=== PATIENT | male | born 1940 | race Caucasian/White ===

== ENCOUNTER 2019-08-11 12:57 | Outpatient (RCR) | payer MEDICARE, SELFPAY ==
[2019-08-11 13:27] LABS: INR 2.1
== END 2019-11-09 23:59 | disposition home or self-care (01) ==
LOC: ANHLAB 12:57
PROVIDERS: PCP Internal Medicine
DX: I48.0 Paroxysmal atrial fibrillation (principal)
CPT/HCPCS: 36415; 85610

== ENCOUNTER 2020-02-08 10:10 | Outpatient (RCR) | payer MEDICARE, SELFPAY ==
[2020-01-23 14:32] LABS: INR 3.4; Prothrombin Time 33.8 Seconds (11.1-14.7)
[2020-02-08 10:48] LABS: INR 2.1; Prothrombin Time 23.5 Seconds (11.1-14.7)
== END 2020-04-22 23:59 | disposition home or self-care (01) ==
LOC: ANHLAB 10:10
PROVIDERS: PCP Internal Medicine
DX: I48.0 Paroxysmal atrial fibrillation (principal)
CPT/HCPCS: 36415; 85610

== ENCOUNTER 2023-12-27 08:49 | Inpatient (IN) | payer MEDICARE, SELFPAY ==
[2023-12-27] VITALS (30 sets, daily range): BP systolic 89–121; BP diastolic 43–65; PULSE 71–78; RESP 13–22; TEMP 36.3–36.6; O2SAT 90–100; BMI 28.7
--- NOTE | ~2023-12-27 | CT_ITS ---
EXAMINATION: CT abdomen pelvis wo con DATE: 12/30/2023 14:57 INDICATION: Cystic hepatic mass TECHNIQUE: Computed tomography (CT) of the abdomen and pelvis was performed without intravenous contr ast. Automated exposure control and iterative reconstruction technique were employed. The dose-length product was 1239.00 mGy-cm. COMPARISON: None FINDINGS: Small left and tiny right pleural effusions. Patchy groundglass opacities and irregular septal line t hickening in the bilateral lower lungs. Cardiomegaly. Atherosclerotic coronary artery calcifications. Dual-lead cardiac pacemaker with lead tips at the right atrial appendage and along the lateral wall of the right ventricle near the apex. Aortic valve calcification. Median sternotomy and mitral valve repair. Gynecomastia, left greater than right. Shrunken nodular cirrhotic liver. There is a 2.2 cm cystic lesion in segment IVb of the liver without evident solid soft tissue component within this noncontrast study. Gallbladder, spleen, pancreas, bi lateral adrenal glands and kidneys are normal. Large amount of ascites scattered throughout the abdom en and pelvis. There is extension of small amount of ascites into a couple small umbilical and paraum bilical ventral hernias. Status post prostatectomy with Guillen catheter within the decompressed bladde r. There are few scattered colonic diverticula without adjacent from trace stranding to suggest diver ticulitis. No bowel obstruction. There is calcified atherosclerosis of the aorta and many of the othe r arteries. Extensive body wall edema. Severe disc height loss at L5-S1 with mild to moderate disc he ight loss at L4-L5. IMPRESSION: 1. 2.2 cm cystic lesion in segment IVb of the liver which appears simple without evident solid soft t issue component on noncontrast imaging. 2. Cirrhosis with large amount of ascites scattered throughout the abdomen and pelvis and extending i nto small umbilical and paraumbilical ventral hernias. 3. Opacities in the bilateral lower lungs which are concerning for pneumonia with differential includ ing pulmonary edema or chronic interstitial lung disease. 4. Small left and very small right pleural effusion. 5. Cardiomegaly. Reviewed, dictated and finalized at location A. IMPRESSION: 1. 2.2 cm cystic lesion in segment IVb of the liver which appears simple withou t evident solid soft tissue component on noncontrast imaging. 2. Cirrhosis with large amount of ascites scattered throughout the abdomen and pelvis and extending into small umbilical and paraumbilical ventral hernias. 3. Opacities in the bilateral lower lungs which are concerning for pneumonia wi th differential including pulmonary edema or chronic interstitial lung disease. 4. Small left and very small right pleural effusion. 5. Cardiomegaly.
--- NOTE | ~2023-12-27 | XR_ITS ---
EXAMINATION: XR chest 1V portable DATE: 12/30/2023 05:33 INDICATION: Pneumonia. TECHNIQUE: A single frontal view of the chest was obtained. COMPARISON: Chest single view 12/29/2023 FINDINGS: There are airspace opacities in all lung zones bilaterally, worst in right upper lobe and l eft mid and lower lung zones. No pleural effusion or pneumothorax. Cardiomegaly is noted. There is a left chest pacer with leads in right atrium, right ventricle, and coronary sinus. There are changes o f heart valve replacement. A right internal jugular central venous catheter is seen with tip at the s uperior cavoatrial junction. IMPRESSION: 1. Stable diffuse lung disease, consistent with pneumonia versus acute respiratory distress syndrome (ARDS). 2. Cardiomegaly. Reviewed, dictated and finalized at location A. IMPRESSION: 1. Stable diffuse lung disease, consistent with pneumonia versus acute respirat ory distress syndrome (ARDS). 2. Cardiomegaly.
--- NOTE | ~2023-12-27 | XR_ITS ---
XR chest 2V 12/27/2023 09:51 Indication: Shortness of breath Procedure: AP and lateral views of the chest Comparison: 03/25/2019 Findings: Status post median sternotomy for CABG. Moderate cardiomegaly. Central venous catheter tips in the SVC. Pacemaker leads are stable. 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 Extensive patchy bilatera l airspace disease, compatible with pneumonia. Impression: 1: Interval development of extensive patchy bilateral airspace disease, compatible with pneumonia. Reviewed, dictated and finalized at location A. Impression: 1: Interval development of extensive patchy bilateral airspace disease, compati ble with pneumonia.
--- NOTE | ~2023-12-27 | XR_ITS ---
EXAMINATION: XR chest 1V portable INDICATION: Pneumonia TECHNIQUE: Portable AP chest at 0517 hours COMPARISON: 12/30/2023 FINDINGS: Diffuse airspace opacities persist in all lung zones with slight improvement. There is elev ation of the right hemidiaphragm. A large bore right internal jugular catheter ends with its tip at t he superior cavoatrial junction. A triple lead cardiac pacemaker of the cardiomegaly is noted. chest wall ends with leads in expected locations. No pleural effusion or pneumothorax. IMPRESSION: 1. Diffuse lung disease with interval improvement, consistent with pneumonia and/or pulmonary edema a nd/or acute respiratory distress syndrome (ARDS). 2. Cardiomegaly. Reviewed, dictated and finalized at location F. IMPRESSION: 1. Diffuse lung disease with interval improvement, consistent with pneumonia an d/or pulmonary edema and/or acute respiratory distress syndrome (ARDS). 2. Cardiomegaly.
--- NOTE | ~2023-12-27 | XR_ITS ---
EXAMINATION: XR chest 1V portable DATE: 12/29/2023 05:33 INDICATION: Pneumonia. TECHNIQUE: A single frontal view of the chest was obtained. COMPARISON: Chest single view 12/28/2023 FINDINGS: There are airspace and interstitial opacities in all lung zones bilaterally, worst in the r ight upper lobe and left mid and lower lung zones. No pleural effusion or pneumothorax. Cardiomegaly is noted. There are changes of heart valve replacement. There is a left chest pacer with leads in rig ht atrium, right ventricle, and coronary sinus. A right internal jugular central venous catheter is s een with tip at the superior cavoatrial junction. IMPRESSION: 1. Stable diffuse lung disease, consistent with pneumonia versus acute respiratory distress syndrome (ARDS). 2. Cardiomegaly. Reviewed, dictated and finalized at location E. IMPRESSION: 1. Stable diffuse lung disease, consistent with pneumonia versus acute respirat ory distress syndrome (ARDS). 2. Cardiomegaly.
--- NOTE | ~2023-12-27 | XR_ITS ---
EXAM: XR abdomen obstructive series DATE: 12/27/2023 14:30 HISTORY: Distended abdomen . COMPARISON: None available. FINDINGS: Patchy airspace disease bilaterally, greater in the left lung base. Cardiac valve replacem ent. Pacing wires. Normal bowel gas pattern. No organomegaly. No abnormal abdominal calcification. At herosclerotic vascular calcifications. Lumbar degenerative disc disease. Bilateral hip osteoarthritis . IMPRESSION: No radiographic evidence of obstruction or ileus. Reviewed, dictated and finalized at location K.
--- NOTE | ~2023-12-27 | XR_ITS ---
EXAMINATION: XR chest 1V portable DATE: 12/28/2023 06:29 INDICATION: Pneumonia. TECHNIQUE: A single frontal view of the chest was obtained. COMPARISON: Chest 2 views 12/27/2023 FINDINGS: There are airspace and interstitial opacities in all lung zones bilaterally, worst in the r ight upper lobe and left mid and lower lung zones. No pleural effusion or pneumothorax. Cardiomegaly is noted. There is a left chest pacer leads in right atrium, right ventricle, and coronary sinus. A r ight internal jugular central venous catheter is seen with tip in the superior vena cava. IMPRESSION: 1. Stable diffuse lung disease, consistent with pulmonary edema versus pneumonia. 2. Cardiomegaly. Reviewed, dictated and finalized at location E. IMPRESSION: 1. Stable diffuse lung disease, consistent with pulmonary edema versus pneumoni a. 2. Cardiomegaly.
--- NOTE | ~2023-12-27 | XR_ITS ---
EXAMINATION: XR chest 1V portable INDICATION: Pneumonia TECHNIQUE: Portable AP chest at 0516 hours COMPARISON: 12/31/2023 FINDINGS: Diffuse airspace opacities persist throughout all lung zones with slight worsening in the r ight upper lung zone. A large bore right internal jugular catheter ends with this tip in the distal s uperior vena cava. A triple lead cardiac pacemaker of the left chest wall ends with leads in expected locations. Cardiomegaly is noted. No pleural effusion or pneumothorax. Changes of prior cardiac surg tez are noted. IMPRESSION: 1. Diffuse lung disease with interval worsening in the right upper lung zone, consistent with pneumon ia and/or pulmonary edema and/or acute respiratory distress syndrome (ARDS). 2. Cardiomegaly. Reviewed, dictated and finalized at location A. IMPRESSION: 1. Diffuse lung disease with interval worsening in the right upper lung zone, c onsistent with pneumonia and/or pulmonary edema and/or acute respiratory distre ss syndrome (ARDS). 2. Cardiomegaly.
--- NOTE | ~2023-12-27 | US_ITS ---
EXAMINATION: US venous doppler [facility] DATE: 12/27/2023 18:56 INDICATION: Bilateral lower extremity edema. TECHNIQUE: Grayscale images without and with compression and Doppler images of the bilateral lower ex tremity veins were obtained. COMPARISON: None FINDINGS: The right common femoral vein, profunda (deep) femoral vein, femoral vein, popliteal vein, peroneal v ein, posterior tibial veins, gastrocnemius vein, and greater saphenous vein are patent. The calf vein s could not be compressed due to edema. The left common femoral vein, profunda (deep) femoral vein, femoral vein, popliteal vein, peroneal v ein, posterior tibial veins, gastrocnemius vein, and greater saphenous vein are patent. The calf vein s could not be compressed due to edema. IMPRESSION: Patent bilateral lower extremity veins. No evidence of deep venous thrombosis. Somewhat limited evalu ation of the bilateral calf veins. Reviewed, dictated and finalized at location K. IMPRESSION: Patent bilateral lower extremity veins. No evidence of deep venous thrombosis. Somewhat limited evaluation of the bilateral calf veins.
--- NOTE | ~2023-12-27 | US_ITS ---
EXAMINATION: US abdomen limited DATE: 12/28/2023 08:19 INDICATION: Hyperbilirubinemia. TECHNIQUE: Multiple grayscale and Doppler ultrasound images of the abdomen were obtained. COMPARISON: None FINDINGS: The visualized portions of the head, body, and tail of the pancreas are normal. The liver d emonstrates heterogeneous echogenicity and surface nodularity, consistent with cirrhosis. There is a 2.0 cm cystic mass with component of mixed echogenicity in the liver adjacent to the gallbladder. The re is pulsatile antegrade flow in main portal vein. The gallbladder is normal in size and contains sl udge. No visible gallstones. Gallbladder wall thickening is noted, likely secondary to chronic liver disease. There is no sonographic Dalton sign. The common duct is normal and measures 4 mm. There is a small volume of perihepatic ascites. IMPRESSION: 1. Cirrhosis of the liver. 2. 2.2 cm cystic mass in the liver abutting the gallbladder. The differential diagnosis includes hemo rrhagic cyst, abscess, and malignancy. Abdomen CT without and with contrast is recommended. 3. Small volume of perihepatic ascites. Reviewed, dictated and finalized at location E. IMPRESSION: 1. Cirrhosis of the liver. 2. 2.2 cm cystic mass in the liver abutting the gallbladder. The differential d iagnosis includes hemorrhagic cyst, abscess, and malignancy. Abdomen CT without and with contrast is recommended. 3. Small volume of perihepatic ascites.
--- NOTE | 2023-12-27 08:56 | ECG_ITS ---
Measurements Intervals [place] Rate: 79 P: GA: 0 QRS: -56 QRSD: 162 T: 34 QT: 468 QTc: 539 Interpretive Statements ELECTRONIC VENTRICULAR PACEMAKER BASELINE ARTIFACT- II, III, AVR, AVL, AVF, V1, V4-V6 NO FURTHER INTERPRETATION IS POSSIBLE ATYPICAL ECG COMPARED TO ECG 03/25/2019 11:30:57 NO SIGNIFICANT CHANGES Electronically Signed On 12-27-2023 12:09:32 CDT by Douglas Tabares D.O.
[2023-12-27 09:09] LABS: Basophils Absolute Auto 0.1 K/mm3 (0.0-0.1); Basophils Percent Auto 0.5 % (0.2-1.2); Eosinophils Absolute Auto 0.3 K/mm3 (0-0.3); Eosinophils Percent Auto 2.5 % (0-4.4); Hematocrit 29.2 % (42.0-52.0); Hemoglobin 8.7 g/dL (14.0-18.0); Immature Granulocyte Absolute 0.12 K/mm3 (0.00-0.031); Immature Granulocyte Percent A 1.2 % (0-0.5); Lymphocytes Absolute Auto 0.63 K/mm3 (0.9-3.2); Lymphocytes Percent Auto 6.4 % (18.3-44.2); Mean Corpuscular HGB Conc 29.8 g/dl (32-36); Mean Corpuscular Volume 93.9 fl (80-100); Mean Platelet Volume 10.3 fl (7.4-10.4); Monocytes Absolute Auto 0.8 K/mm3 (0.1-0.6); Monocytes Percent Auto 8.1 % (2.6-8.5); Neutrophils Percent Auto 81.3 % (45.5-73.1); Platelet Count Result 192 k/mm3 (150-375); Red Blood Count 3.11 M/mm3 (4.6-6.20); Red Cell Distribution Width 17.8 % (11.5-14.5); White Blood Count 9.8 K/mm3 (4.5-10.0)
--- NOTE | 2023-12-27 09:09 | ED.GENADULT ---
HPI - General Adult General Chief complaint: Unspecified Stated complaint: low BP, O2 Time Seen by Provider: 12/27/23 08:53 Source: patient and EMS Mode of arrival: EMS Limitations: no limitations History of Present Illness HPI narrative: 83-year-old male presenting for reported hypoxia, hypotension from his rehab facility. Patient was started on dialysis yesterday and reportedly was found hypoxic and hypotensive this morning. He typically is on 2-3 L oxygen but they had to increase it to 5 L because his oxygen was in the 80s. Patient says he feels slightly more short of breath than normal but really feels quite good. He has no other complaints. Related Data Home Medications Medication Instructions Recorded Confirmed amiodarone 200 mg PO BID A-fib 12/24/23 12/27/23 furosemide 80 mg PO DAILY CHF 12/24/23 12/27/23 metolazone 5 mg PO QAM Swelling 12/24/23 12/27/23 pitavastatin calcium 2 mg PO HS 12/24/23 12/27/23 senna-docusate sodium 2 tablet PO QAM PRN Constipation 12/24/23 12/27/23 tamsulosin 0.4 mg PO HS Urinary retention 12/24/23 12/27/23 warfarin 3 mg PO 1700 A-fib 12/24/23 12/27/23 Allergies Allergy/AdvReac Type Severity Reaction Status Date / Time Sulfa (Sulfonamide Allergy Unknown Rash Verified 12/27/23 09:08 Antibiotics) Review of Systems Review of Systems: All systems reviewed & are unremarkable except as noted in HPI and below PMFSH Family History Family History Other Hypertension Social History Social History Smoking packs per day: 1 Smoking cigarettes per day: 20.0 Years smoked: 10 Smoking pack-years: 10.00 Smoking status: Former smoker Second hand tobacco smoke exposure: No Smoking end date: 10/05/79 Alcohol intake: former Substance use: never Do You Feel Safe in your Home?: Yes Lack of Transportation: No Lack of Food: Never True Current Housing: I Have Housing Concerned About Future Housing: No Difficulty Paying Gas/Electric Bills: No Difficulty Paying for Meds: No Currently Unemployed: No Education: Trade/Vocational Certificate Difficulty w/ Childcare or Family Care: No Spiritual care concerns: No Exam Narrative: Constitutional: Generally well appearing, no acute distress Head: Atraumatic, no deformities. Eyes: Pupils equal, round, and reactive to light. Neck: Supple, no tracheal deviation, no JVD. ENMT: Mucous membranes moist Cardiovascular: S1, S2 auscultated. No murmurs, rubs, or gallops. No S3/S4. Normal Distal pulses. No peripheral edema. Right upper chest wall PermCath Respiratory: Lung sounds equal. No wheezes, rales, or rhonchi. Gastrointestinal: Abdomen was soft and non-tender. Non-distended. No rebound or guarding. Genitourinary: Deferred Musculoskeletal: Normal muscle tone and bulk. No obvious deformities or tenderness over extremities. Skin: No rashes. Neurological: Strength 5/5 in extremities. Cranial nerves I-XII grossly intact. Distal sensation intact. Mental Status: Awake, alert and oriented x3. Follows commands Course Vital Signs Vital signs: Vital Signs Temperature 36.4 C L 12/27/23 08:44 Pulse Rate 77 12/27/23 08:44 Respiratory Rate 21 H 12/27/23 08:44 Blood Pressure 104/45 L 12/27/23 08:44 Pulse Oximetry 91 12/27/23 08:44 Oxygen Delivery Nasal Cannula 12/27/23 08:44 Oxygen Flow Rate 4 12/27/23 08:44 Temperature 36.4 C L 12/27/23 08:44 Pulse Rate 72 12/27/23 09:30 Respiratory Rate 17 12/27/23 09:30 Blood Pressure 89/43 L 12/27/23 09:30 Pulse Oximetry 95 12/27/23 09:30 Oxygen Delivery Nasal Cannula 12/27/23 08:44 Oxygen Flow Rate 4 12/27/23 08:53 Medical Decision Making MDM Narrative Medical decision making narrative: 83-year-old male presenting from rehab facility for hypotension hypoxia. Reportedly Had dialysis yesterday. On exam patient
[2023-12-27 09:22] LABS: Alanine Aminotransferase 20 U/L (6-50); Albumin Level 3.1 g/dL (3.5-5.1); Alkaline Phosphatase 258 U/L (38-126); Anion Gap 5 mmol/L (8-16); Aspartate Amino Transferase 59 U/L (17-59); Bilirubin,Total 2.4 mg/dL (0.2-1.3); Blood Urea Nitrogen 40 mg/dL (9-20); Calcium 8.7 mg/dL (8.4-10.2); Carbon Dioxide 30 mmol/L (22-30); Chloride 99 mmol/L (98-107); Estimated CRCL calculation 23 ml/min; Estimated Glomerular Filt Rate 27; Glucose 102 mg/dL (65-110); Potassium 4.1 mmol/L (3.4-5.0); Sodium 134 mmol/L (137-145)
[2023-12-27 09:35] LABS: Ovalocytes 1+; Platelet Estimate Adequate (Adequate); Poikilocytosis 1+
[2023-12-27 09:36] LABS: Schistocytes Rare
[2023-12-27 09:56] LABS: INR 1.9; Prothrombin Time 22.6 Seconds (11.1-14.7)
[2023-12-27 09:57] LABS: Partial Thromboplastin Time 44.6 Seconds (22.3-36.8)
[2023-12-27] MEDS: SODIUM CHLORIDE 0.9% IV 500 ML 999 ML IV CONT (09:58)
[2023-12-27 10:15] LABS: CRP 7.5 mg/dL (<1.0)
[2023-12-27 10:46] LABS: Lactic Acid Reflex 1.4 mmol/L (0.7-2.0)
[2023-12-27] MEDS: CEFEPIME 2 GM/NS 50 ML 2 GM/50 ML BAG IVPB (10:51)
[2023-12-27] MEDS: VANCOMYCIN 1,250 MG/NS 250 ML 1,250 MG/250 ML BAG 166.67 MG IVPB (11:03)
[2023-12-27 11:44] LABS: Influenza A QL RT-PCR Negative (Negative); Influenza B QL RT-PCR Negative (Negative); RSV RNA, RT-PCR Negative (Negative); SARS-CoV-2 RNA PCR Negative (Negative)
[2023-12-27 12:19] LABS: MRSA (PCR) NOT DETECTED (NOT DETECTE)
--- NOTE | 2023-12-27 12:32 | ADMGEN ---
This patient, Haresh Perez, was admitted to Virtual Bed ICU-1 at 1224. Patient/family oriented to hospital policies and general routines including ID bracelet, bed and alarms, visiting hours, pain management, procedures, bathroom and other care routines, personal items, smoking policy, room service/diet, and visiting hours. Information on how to activate the Rapid Response Team has been discussed. Patient/Family are encouraged to report perceived risks to care and to ask questions if they do not understand what they are told or what they should do.
[2023-12-27] MEDS: VANCOMYCIN 1,000 MG/NS 250 ML 1,000 MG/250 ML BAG 250 MG IVPB (13:05)
--- NOTE | 2023-12-27 13:45 | ADMGEN ---
This patient, Haresh Perez, was admitted to Intensive Care Unit-5. Patient/family oriented to hospital policies and general routines including ID bracelet, bed and alarms, visiting hours, pain management, procedures, bathroom and other care routines, personal items, smoking policy, room service/diet, and visiting hours. Information on how to activate the Rapid Response Team has been discussed. Patient/Family are encouraged to report perceived risks to care and to ask questions if they do not understand what they are told or what they should do.
--- NOTE | 2023-12-27 14:00 | WPDCNINT ---
Assessment and Plan Assessment and plan (1) Pneumonia: Qualifiers: Pneumonia type: due to unspecified organism Laterality: bilateral Lung location: unspecified part of lung Qualified Code(s): J18.9 - Pneumonia, unspecified organism Code(s): J18.9 - Pneumonia, unspecified organism Status: Acute Assessment and Plan: 12/27/2023: Patient presented from the rehab facility with shortness of breath and hypoxia, normally on 3 L oxygen which had to be bumped to 5 L with adequate O2 sats. The ER he was saturating much better so a oxygen was dialed down to 3 L nasal cannula. -12/26: chest x-ray admission showed interval development of extensive patchy bilateral airspace disease, compatible with pneumonia, pacemaker leads are stable, and a prosthetic heart valve, status post median sternotomy for CABG, moderate cardiomegaly, central venous catheter tip in SVC -start bronchodilators -continue vancomycin and cefepime (12/26) -12/26 blood cultures have been obtained and pending -continue supplemental oxygen to maintain O2 sats > 92% (2) Sepsis: Qualifiers: Sepsis type: sepsis due to unspecified organism Sepsis acute organ dysfunction status: without acute organ dysfunction Qualified Code(s): A41.9 - Sepsis, unspecified organism Code(s): A41.9 - Sepsis, unspecified organism Status: Acute Assessment and Plan: Patient presented with hypoxia with O2 sats in the 80s, tachypnea, cough, hypotension -lactic acid is within normal limits -continue antibiotics as above -patient received 500 mL IV fluid bolus in the ER -given patient has a history of end-stage renal disease, will infuse albumin for volume expansion -patient's systolic blood pressures normally run in the 100s -add midodrine, since patient has cardiorenal syndrome (3) Paroxysmal A-fib: Code(s): I48.0 - Paroxysmal atrial fibrillation Status: Acute Assessment and Plan: History of paroxysmal AFib -continue p.o. amiodarone and Coumadin for anticoagulation (4) SSS (sick sinus syndrome): Code(s): I49.5 - Sick sinus syndrome Status: Acute Assessment and Plan: Patient with history of sick sinus syndrome with pacemaker in place (5) Edema: Code(s): R60.9 - Edema, unspecified Status: Chronic Assessment and Plan: Bilateral lower extremity edema, multifactorial -could be related due to cardiomyopathy, renal failure, hepatic dysfunction -elevated bilirubin, will obtain right upper quadrant ultrasound -abdominal is also distended, will obtain obstructive series -continue albumin for now -patient is on dialysis for fluid removal (6) Renal failure: Code(s): N19 - Unspecified kidney failure Status: Acute Assessment and Plan: Patient with acute on chronic kidney disease -recently started on dialysis on 12/15/2023 at [facility] where he was diagnosed with cardiorenal syndrome -patient has a tunnel dialysis catheter which was placed on 12/15/2023 -nephrology has been consulted -dialysis per Nephrology -will hold Lovenox and metolazone due to hypotension (7) Debilitated: Code(s): R53.81 - Other malaise Status: Acute Assessment and Plan: Patient at rehab facility for debilitation, he states he has not been able to get up and walk. -once he is stable will have PT/OT evaluate the patient Plan DVT prophylaxis: Coumadin Stress ulcer prophylaxis: Not indicated Nutrition: Renal diet Code Status: Full code Critical Care Time Spent: 49 minutes Discuss with Nephrology, agrees with the plan as above Due to a high probability of clinically significant, life threatening deterioration, the patient required my highest level of preparedness to intervene emergently and I personally spent this critical care time directly and personally managing the patient. This critical care time included obtaining a history; examining the patient; pulse ox
--- NOTE | 2023-12-27 14:23 | P.CONNP_ITS ---
Assessment and Plan Assessment and plan (1) Acute kidney injury superimposed on CKD: Code(s): N17.9 - Acute kidney failure, unspecified; N18.9 - Chronic kidney disease, unspecified Status: Acute Assessment and Plan: * dialysis dependent at this time * baseline CKD likely due to CHF, vascular disease, hypertension, and age- related change * outpatient and inpatient labs noted: * 1.5 - 1.7mg/dl in 2022 * 2.1 ? 2.4mg/dl since Oct 2023 * on admission to [facility] (12/09), creatinine 2.8mg/dl with a BUN of 108 * BUN/Cr worsened to 126/3.64 on 12/15/23 * based on review of hospital records and discussion with patient, this may have progressed to ESRD (to maintain fluid status and provide clearance) * was following with Dr. Goetz during acute hospitalization at [facility] * HD yesterday * plan next HD on Thursday unless needs it sooner * holding diuretics given issues with hypotension * follow electrolytes, volume status, and clearance (2) Sepsis: Qualifiers: Sepsis type: sepsis due to unspecified organism Sepsis acute organ dysfunction status: without acute organ dysfunction Qualified Code(s): A41.9 - Sepsis, unspecified organism Code(s): A41.9 - Sepsis, unspecified organism Status: Acute Assessment and Plan: * based on presentation with hypoxia, increased RR, cough and hypotension * BP better s/p 500cc NS bolus * lactic acid normal * at baseline, systolic BP runs in the 100 - 110 systolic range * follow culture data * on antibiotics (3) Pneumonia: Qualifiers: Pneumonia type: due to unspecified organism Laterality: bilateral Lung location: unspecified part of lung Qualified Code(s): J18.9 - Pneumonia, unspecified organism Code(s): J18.9 - Pneumonia, unspecified organism Status: Acute Assessment and Plan: * admission CXR suggestive * evidence of tachypnea and hypoxia on presentation * follow cultures * on antibiotics * oxygen support and bronchodilators * follow respiratory status (4) Anemia: Code(s): D64.9 - Anemia, unspecified Status: Acute Assessment and Plan: * due to ZELDA/CKD and dialysis * Epogen with HD * check iron studies * follow trend of H/H (5) Edema: Code(s): R60.9 - Edema, unspecified Status: Chronic Assessment and Plan: * due to renal dysfunction, CHF/cardiorenal syndrome and PVD * element of liver dysfunction playing a role * consider further imaging (CT chest/abd/pelvis) * fluid removal with HD as tolerated * however, does not tolerated aggressive ultrafiltration (6) Paroxysmal A-fib: Code(s): I48.0 - Paroxysmal atrial fibrillation Status: Acute Assessment and Plan: * rate control strategy - on amiodarone * on warfarin for anticoagulation - follow PT/INR Discussed case with Dr. Alvarez. I will continue follow the patient with you while the patient remains in rehab in make further recommendations as deemed necessary. Thank you for allowing me to participate in the care of this patient. 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
--- NOTE | 2023-12-27 14:23 | PM.CNNEP ---
Assessment and Plan Assessment and plan (1) Acute kidney injury superimposed on CKD: Code(s): N17.9 - Acute kidney failure, unspecified; N18.9 - Chronic kidney disease, unspecified Status: Acute Assessment and Plan: dialysis dependent at this time baseline CKD likely due to CHF, vascular disease, hypertension, and age-related change outpatient and inpatient labs noted: 1.5 - 1.7mg/dl in 2022 2.1 ? 2.4mg/dl since Oct 2023 on admission to [facility] (12/09), creatinine 2.8mg/dl with a BUN of 108 BUN/Cr worsened to 126/3.64 on 12/15/23 based on review of hospital records and discussion with patient, this may have progressed to ESRD (to maintain fluid status and provide clearance) was following with Dr. Goetz during acute hospitalization at [facility] HD yesterday plan next HD on Thursday unless needs it sooner holding diuretics given issues with hypotension follow electrolytes, volume status, and clearance (2) Sepsis: Qualifiers: Sepsis type: sepsis due to unspecified organism Sepsis acute organ dysfunction status: without acute organ dysfunction Qualified Code(s): A41.9 - Sepsis, unspecified organism Code(s): A41.9 - Sepsis, unspecified organism Status: Acute Assessment and Plan: based on presentation with hypoxia, increased RR, cough and hypotension BP better s/p 500cc NS bolus lactic acid normal at baseline, systolic BP runs in the 100 - 110 systolic range follow culture data on antibiotics (3) Pneumonia: Qualifiers: Pneumonia type: due to unspecified organism Laterality: bilateral Lung location: unspecified part of lung Qualified Code(s): J18.9 - Pneumonia, unspecified organism Code(s): J18.9 - Pneumonia, unspecified organism Status: Acute Assessment and Plan: admission CXR suggestive evidence of tachypnea and hypoxia on presentation follow cultures on antibiotics oxygen support and bronchodilators follow respiratory status (4) Anemia: Code(s): D64.9 - Anemia, unspecified Status: Acute Assessment and Plan: due to ZELDA/CKD and dialysis Epogen with HD check iron studies follow trend of H/H (5) Edema: Code(s): R60.9 - Edema, unspecified Status: Chronic Assessment and Plan: due to renal dysfunction, CHF/cardiorenal syndrome and PVD element of liver dysfunction playing a role consider further imaging (CT chest/abd/pelvis) fluid removal with HD as tolerated however, does not tolerated aggressive ultrafiltration (6) Paroxysmal A-fib: Code(s): I48.0 - Paroxysmal atrial fibrillation Status: Acute Assessment and Plan: rate control strategy - on amiodarone on warfarin for anticoagulation - follow PT/INR Discussed case with Dr. Alvarez. I will continue follow the patient with you while the patient remains in rehab in make further recommendations as deemed necessary. Thank you for allowing me to participate in the care of this patient. History of Present Illness Reason for Consult Consult date: 12/27/23 Reason for consult: acute renal failure (on chronic kidney disease requiring DIRECTOR CUSTOMER/hemodialysis) Chief Complaint Chief complaint: Sepsis History of Present Illness Narrative: The patient is an 83-year-old male with an extensive past medical history as outlined below who presented to [facility] Emergency Room earlier this morning with complaints of shortness of breath in association with hypoxia and hypotension from [facility]. The patient is typically on 2-3 L of supplemental oxygen at baseline but given his oxygen saturations were 80% as noted by nursing staff at [facility], his supplemental oxygen was bumped up to 5 L which got him in to the range of 90% or greater. Furthermore, he was noted be somewhat hypotensive with a systolic blood pressure in the 80s which was further c
--- NOTE | 2023-12-27 14:29 | PM.IMHP ---
H&P: HPI History of Present Illness Date/Time: 12/27/23 14:30 Chief Complaint: Low blood pressure and SPO2. Narrative: This is an 83-year-old male with coronary artery disease status post CABG, paroxysmal atrial fibrillation on chronic anticoagulation, anemia, and chronic kidney disease who presented to the emergency department via EMS from [facility] for evaluation of low blood pressure and SpO2. The patient provides the following history. He was admitted to [facility] earlier this month for acute on chronic renal failure and volume overload. He was diagnosed with cardiorenal syndrome and was diuresed but became oligoanuric with worsening azotemia and rising creatinine and he was started on hemodialysis on 12/15/2023. He was discharged to [facility] 2 days ago with last dialysis treatment being yesterday. This morning he was found hypotensive (80/40) and hypoxic (SpO2 was in the 80s on his usual 2 to 3 L). The patient himself did not have have any stated complaints aside from mild shortness of breath. He denies fever, sinus congestion, sore throat, productive cough, chest and pleuritic pain, palpitations, vomiting, and diarrhea. In the ED: He was afebrile on arrival with a blood pressure of 81/45 and an SpO2 of 94% on 4 L. Labs were significant for WBC count of 9.8, hemoglobin 8.7, INR 1.7, sodium 134, BUN 40, creatinine 2.30, total bilirubin 2.4, CRP 7.5, total protein 6.0, albumin 3.1. He was negative for influenza, RSV, and COVID. Chest x-ray showed extensive patchy bilateral airspace disease compatible with pneumonia. He was given a 500 mL normal saline bolus as well as 2 g of cefepime and 1500 mg vancomycin. He is being admitted in this setting for further treatment and evaluation. Review of Systems Review of Systems: 12 systems were reviewed and are negative except for as per HPI. [facility] Past Medical History Medical History (Updated 12/27/23 @ 15:08 by Ely Nixon PA-C) Chronic anemia Chronic anticoagulation Chronic kidney disease Congestive heart failure Coronary artery disease Hyperlipidemia Hypertension Melanoma Paroxysmal atrial fibrillation Peripheral vascular disease Sick sinus syndrome Status post pacemaker implantation. Surgical History Surgical History (Updated 12/27/23 @ 15:04 by Ely Nixon PA-C) History of aortic valve replacement History of coronary artery bypass graft History of permanent cardiac pacemaker placement For sick sinus syndrome. Family History Family History Father Hypertension Lung cancer Social History Social History (Updated 12/27/23 @ 15:06 by Ely Nixon PA-C) Social History: Surrogate medical decision maker: Macie Perez, spouse. Code status: Full code. Smoking packs per day: 1 Smoking cigarettes per day: 20.0 Years smoked: 15 Smoking pack-years: 15.00 Smoking status: Former smoker Second hand tobacco smoke exposure: No Smoking end date: 10/05/79 Alcohol intake: never Substance use: never Do You Feel Safe in your Home?: Yes Lack of Transportation: No Lack of Food: Never True Current Housing: I Have Housing Concerned About Future Housing: No Difficulty Paying Gas/Electric Bills: No Difficulty Paying for Meds: No Currently Unemployed: No Education: Trade/Vocational Certificate Difficulty w/ Childcare or Family Care: No Spiritual care concerns: No Meds Home Medications and Allergies Home Medications Medication Instructions Recorded Confirmed Type amiodarone 200 mg PO BID A-fib 12/24/23 12/27/23 History furosemide 80 mg PO DAILY CHF 12/24/23 12/27/23 History metolazone 5 mg PO QAM Swelling 12/24/23 12/27/23 History pitavastatin calcium 2 mg PO HS 12/24/23 12/27/23 History senna-docusate sodium 2 tablet PO QAM PRN Constipation 12/24/23 12/27/23 History tamsulosin 0.4 mg PO HS Urinary retention 12/24/23 12/27/23 History warfar
[2023-12-27] MEDS: IPRATROPIUM 0.5 MG/ALBUTEROL SULFATE 2.5 MG AMPUL.NEB 3 ML INHALATION ×2 (14:48→20:20)
[2023-12-27] MEDS: ALBUMIN HUMAN 25% 25 GM/100 ML 100 ML IVPB ×2 (14:49→17:30)
[2023-12-27 14:57] LABS: INR 1.7; Prothrombin Time 21.5 Seconds (11.1-14.7)
[2023-12-27 15:41] LABS: Magnesium 2.1 mg/dL (1.6-2.3)
[2023-12-27 15:50] LABS: NT Pro B Type Natriuretic Pept 15000 pg/mL (19.9-100)
[2023-12-27 16:02] LABS: Procalcitonin 1.2 ng/mL
[2023-12-27] MEDS: WARFARIN (*PBKC) 3 MG TABLET PO (17:29)
[2023-12-27] MEDS: MIDODRINE HCL 10 MG TABLET PO (17:29)
[2023-12-28] VITALS (22 sets, daily range): BP systolic 91–112; BP diastolic 45–70; PULSE 70–78; RESP 15–21; TEMP 35.4–36.6; O2SAT 92–99
--- NOTE | 2023-12-28 | ECHO_ITS ---
Patient Info Name: Haresh Perez Age: 83 years : 1940 Gender: Male Ht: 69 in Wt: 206 lbs BSA: 2.16 m2 HR: 78 bpm BP: 111 / 59 mmHg Heart Rhythm: Paced Technical Quality: Fair Exam Date: 12/28/2023 8:36 AM Exam Location: Echo Lab Patient Status: Inpatient Admit Date: 12/27/2023 Staff Ordering Physician: Sabrina Alvarez MD Research Dietitian: Sofia Lambert RDCS Attending Provider: Mt Boyd MD Referring Physician: Kim HERNANDEZ; Exam Type: CA echo dop color flow w con Study Info Indications - sepsis, chf, cad Complete two-dimensional, color flow and Doppler transthoracic echocardiogram is performed with contrast to opacify the left ventricle and to improve the deliniation of the left ventricle endocardial borders. Contrast/Agitated Saline Contrast/Ag. Saline: Definity Amount: 2.00 ml Administered By: Sofia Lambert RDCS Existing IV Access: Yes IV Access Condition: patent with no signs of infiltration Summary 1. Normal left ventricular size and systolic function. 2. Moderate left atrial a large. 3. Mild mitral regurgitation, suspect previous ring annuloplasty. 4. Thickened mitral valve chordal structures. 5. Mildly sclerotic aortic valve with well maintained leaflet excursion. 6. Pacemaker lead noted. Left Ventricle Left ventricular chamber dimension is normal. Left ventricular systolic function is normal, estimated at 50-55%. The left ventricular diastolic function is indeterminate. Right Ventricle Right ventricular chamber dimension is normal. Linear artifact in right ventricle suggestive of catheter(s), pacemaker lead(s), or ICD lead(s). Left Atria Left atrial chamber dimension is moderately enlarged. Right Atria Right atrial chamber dimension is mildly enlarged. Aortic Valve The aortic valve is trileaflet. There is mild aortic valve sclerosis. There is mild aortic valve regurgitation. Pulmonic Valve The pulmonic valve is normal. Mitral Valve The annuloplasty ring prosthetic mitral valve leaflefts are Empty. There is trace regurgitation of the annuloplasty ring prosthetic mitral valve. Tricuspid Valve The tricuspid valve leaflets are normal. There is mild tricuspid valve regurgitation. Pericardium/Pleural The pericardium appears normal. Aorta The aortic root size at the sinus of Valsalva is normal. Left Ventricular Outflow Tract Name Value Normal LVOT 2D LVOT Diameter 1.98 cm LVOT Doppler LVOT Peak Gradient 2 mmHg LVOT Mean Gradient 1 mmHg LVOT VTI 15.88 cm LVOT VTI/AV VTI Ratio 0.60 LVOT Stroke Volume 48.75 ml LVOT CO 3.34 l/min LVOT CI 1.55 L/min/m2 Pulmonic Valve Name Value Normal RVOT Doppler RVOT Peak Gradient 0 mm
[2023-12-28] MEDS: ALBUMIN HUMAN 25% 25 GM/100 ML 100 ML IVPB ×4 (01:02→17:59)
[2023-12-28] MEDS: IPRATROPIUM 0.5 MG/ALBUTEROL SULFATE 2.5 MG AMPUL.NEB 3 ML INHALATION ×4 (01:02→19:59)
[2023-12-28 04:53] LABS: Basophils Absolute Auto 0.1 K/mm3 (0.0-0.1); Basophils Percent Auto 0.6 % (0.2-1.2); Eosinophils Absolute Auto 0.3 K/mm3 (0-0.3); Eosinophils Percent Auto 3.5 % (0-4.4); Hematocrit 28.1 % (42.0-52.0); Hemoglobin 8.3 g/dL (14.0-18.0); Immature Granulocyte Absolute 0.11 K/mm3 (0.00-0.031); Immature Granulocyte Percent A 1.2 % (0-0.5); Lymphocytes Absolute Auto 0.71 K/mm3 (0.9-3.2); Mean Corpuscular HGB Conc 29.5 g/dl (32-36); Mean Corpuscular Hemoglobin 27.8 pg (26-34); Mean Platelet Volume 10.4 fl (7.4-10.4); Monocytes Absolute Auto 0.7 K/mm3 (0.1-0.6); Monocytes Percent Auto 8.1 % (2.6-8.5); Neutrophils Percent Auto 78.6 % (45.5-73.1); Platelet Count Result 188 k/mm3 (150-375); Red Blood Count 2.99 M/mm3 (4.6-6.20); Red Cell Distribution Width 17.7 % (11.5-14.5); White Blood Count 8.9 K/mm3 (4.5-10.0)
[2023-12-28 05:03] LABS: Lactic Acid Reflex 1.1 mmol/L (0.7-2.0)
[2023-12-28 05:06] LABS: CRP 6.7 mg/dL (<1.0); Estimated CRCL calculation 21 ml/min; Estimated Glomerular Filt Rate 25; Lipase 171 U/L (23-300); Magnesium 2.1 mg/dL (1.6-2.3); Phosphorus 4.1 mg/dL (2.5-4.5)
[2023-12-28 05:08] LABS: INR 2.1; Prothrombin Time 24.7 Seconds (11.1-14.7)
[2023-12-28 05:43] LABS: Platelet Estimate Adequate (Adequate)
[2023-12-28 05:44] LABS: Hypochromasia 1+; Schistocytes None Seen
[2023-12-28 07:42] LABS: Alanine Aminotransferase 16 U/L (6-50); Albumin Level 3.5 g/dL (3.5-5.1); Alkaline Phosphatase 215 U/L (38-126); Anion Gap 9 mmol/L (8-16); Aspartate Amino Transferase 47 U/L (17-59); Bilirubin,Total 2.2 mg/dL (0.2-1.3); Blood Urea Nitrogen 47 mg/dL (9-20); Calcium 8.9 mg/dL (8.4-10.2); Carbon Dioxide 23 mmol/L (22-30); Chloride 100 mmol/L (98-107); Estimated CRCL calculation 23 ml/min; Estimated Glomerular Filt Rate 24; Glucose 100 mg/dL (65-110); Potassium 3.9 mmol/L (3.4-5.0); Sodium 132 mmol/L (137-145)
[2023-12-28 07:58] LABS: Free T4 Free Thyroxine 2.34 ng/mL (0.78-2.19)
--- NOTE | 2023-12-28 08:36 | WPDINTPN ---
Progress Note: A&P Assessment and Plan (1) Pneumonia: Qualifiers: Pneumonia type: due to unspecified organism Laterality: bilateral Lung location: unspecified part of lung Qualified Code(s): J18.9 - Pneumonia, unspecified organism Code(s): J18.9 - Pneumonia, unspecified organism Status: Acute Assessment and Plan: 12/27/2023: Patient presented from the rehab facility with shortness of breath and hypoxia, normally on 3 L oxygen which had to be bumped to 5 L with adequate O2 sats. The ER he was saturating much better so a oxygen was dialed down to 3 L nasal cannula. -12/26: chest x-ray admission showed interval development of extensive patchy bilateral airspace disease, compatible with pneumonia, pacemaker leads are stable, and a prosthetic heart valve, status post median sternotomy for CABG, moderate cardiomegaly, central venous catheter tip in SVC -continue bronchodilators -continue vancomycin and cefepime (12/26) -12/26: Preliminary blood cultures are negative so far -continue supplemental oxygen to maintain O2 sats > 92% (2) Sepsis: Qualifiers: Sepsis type: sepsis due to unspecified organism Sepsis acute organ dysfunction status: without acute organ dysfunction Qualified Code(s): A41.9 - Sepsis, unspecified organism Code(s): A41.9 - Sepsis, unspecified organism Status: Acute Assessment and Plan: Patient presented with hypoxia with O2 sats in the 80s, tachypnea, cough, hypotension -lactic acid is within normal limits -continue antibiotics as above -patient received 500 mL IV fluid bolus in the ER -given patient has a history of end-stage renal disease, will infuse albumin for volume expansion -according the patient, his systolic blood pressures normally run in the 100s -continue midodrine, since patient has cardiorenal syndrome -12/27 : RUQ ultrasound showed cirrhosis of liver, 2.2 cm cystic mass in the interval abutting the gallbladder diagnosis could include hemorrhagic cyst, abscess, malignancy. Small volume perihepatic ascites, CT scan without and with contrast is recommended (3) Paroxysmal A-fib: Code(s): I48.0 - Paroxysmal atrial fibrillation Status: Acute Assessment and Plan: History of paroxysmal AFib -continue p.o. amiodarone and Coumadin for anticoagulation -currently paced rhythm and stable (4) SSS (sick sinus syndrome): Code(s): I49.5 - Sick sinus syndrome Status: Acute Assessment and Plan: Patient with history of sick sinus syndrome with pacemaker in place (5) Edema: Code(s): R60.9 - Edema, unspecified Status: Chronic Assessment and Plan: Bilateral lower extremity edema, multifactorial -could be related due to cardiomyopathy, renal failure, hepatic dysfunction -elevated bilirubin, right upper quadrant ultrasound showed cirrhosis -abdominal is also distended, will obtain obstructive series -continue albumin for now -patient is on dialysis for fluid removal (6) Renal failure: Code(s): N19 - Unspecified kidney failure Status: Acute Assessment and Plan: Patient with acute on chronic kidney disease on HD (M, W, F) -recently started on dialysis on 12/15/2023 at [facility] where he was diagnosed with cardiorenal syndrome -patient has a tunnel dialysis catheter which was placed on 12/15/2023 -nephrology has been consulted -dialysis per Nephrology -will hold Lasix and metolazone due to hypotension (7) Debilitated: Code(s): R53.81 - Other malaise Status: Acute Assessment and Plan: Patient at rehab facility for debilitation, he states he has not been able to get up and walk. -once he is stable will have PT/OT evaluate the patient Plan DVT prophylaxis: Coumadin Stress ulcer prophylaxis: Not indicated Nutrition: Renal diet Code Status: Full code Critical Care Time Spent: 32 minutes Patient may transfer out of the ICU if okay with hospital
[2023-12-28 08:46] LABS: Total Triiodothyronine (T3) 0.71 NG/ML (0.97-1.69)
[2023-12-28] MEDS: PERFLUTREN LIPID MICROSPHERES 1.5 ML VIAL DILUTED TO 10 ML TOTAL VOLUME IV PUSH (09:25)
[2023-12-28] MEDS: CEFEPIME 2 GM/NS 50 ML 2 GM/50 ML BAG IVPB (09:42)
[2023-12-28] MEDS: MIDODRINE HCL 10 MG TABLET PO ×3 (09:43→17:05)
--- NOTE | 2023-12-28 10:53 | P.PNNP_ITS ---
Progress Note: A&P Assessment and Plan (1) Acute kidney injury superimposed on CKD: Code(s): N17.9 - Acute kidney failure, unspecified; N18.9 - Chronic kidney disease, unspecified Status: Acute Assessment and Plan: * dialysis dependent at this time * baseline CKD likely due to CHF, vascular disease, hypertension, and age- related change * outpatient and inpatient labs noted: * 1.5 - 1.7mg/dl in 2022 * 2.1 ? 2.4mg/dl since Oct 2023 * on admission to [facility] (12/09), creatinine 2.8mg/dl with a BUN of 108 * BUN/Cr worsened to 126/3.64 on 12/15/23 * based on review of hospital records and discussion with patient, this may have progressed to ESRD (to maintain fluid status and provide clearance) * was following with Dr. Goetz during acute hospitalization at [facility] * plan next HD on Thursday * holding diuretics given issues with hypotension * follow electrolytes, volume status, and clearance (2) Sepsis: Qualifiers: Sepsis type: sepsis due to unspecified organism Sepsis acute organ dysfunction status: without acute organ dysfunction Qualified Code(s): A41.9 - Sepsis, unspecified organism Code(s): A41.9 - Sepsis, unspecified organism Status: Acute Assessment and Plan: * based on presentation with hypoxia, increased RR, cough and hypotension * BP better s/p 500cc NS bolus on admission * lactic acid normal * at baseline, systolic BP runs in the 100 - 110 systolic range * follow culture data * on antibiotics (3) Pneumonia: Qualifiers: Pneumonia type: due to unspecified organism Laterality: bilateral Lung location: unspecified part of lung Qualified Code(s): J18.9 - Pneumonia, unspecified organism Code(s): J18.9 - Pneumonia, unspecified organism Status: Acute Assessment and Plan: * admission CXR suggestive * evidence of tachypnea and hypoxia on presentation * follow cultures * on antibiotics * oxygen support and bronchodilators * follow respiratory status (4) Anemia: Code(s): D64.9 - Anemia, unspecified Status: Acute Assessment and Plan: * due to ZELDA/CKD and dialysis * Epogen with HD * follow trend of H/H (5) Edema: Code(s): R60.9 - Edema, unspecified Status: Chronic Assessment and Plan: * due to renal dysfunction, CHF/cardiorenal syndrome and PVD * element of liver dysfunction playing a role * consider further imaging (CT chest/abd/pelvis) * fluid removal with HD as tolerated * however, does not tolerated aggressive ultrafiltration (6) Paroxysmal A-fib: Code(s): I48.0 - Paroxysmal atrial fibrillation Status: Acute Assessment and Plan: * rate control strategy - on amiodarone * on warfarin for anticoagulation - follow PT/INR Will continue to follow. Subjective Date/time seen: 12/28/23 10:53 Interval history: Follow-up for acute kidney injruy on chronic kidney disease (with likely progression to ESRD) requiring RELOCATION SERVICES SPECIALIST/hemodialysis. No apparent distress noted at the time of my visit; remains on baseline supplemental oxygen of 2L with stable/adequate oxygen saturation; denies any shortness of breath or discomfort currently; afebrile with stable hemodynamics noted; no other acute complaints voiced. Exam Narrative: General: elderly male in NAD Heart: normal S1 and S2; no rub Lungs: clear anteriorly, decreased at bases Abdomen: soft, nontender, mild distension, positive bowel sounds
--- NOTE | 2023-12-28 10:53 | PM.PNNEP ---
Progress Note: A&P Assessment and Plan (1) Acute kidney injury superimposed on CKD: Code(s): N17.9 - Acute kidney failure, unspecified; N18.9 - Chronic kidney disease, unspecified Status: Acute Assessment and Plan: dialysis dependent at this time baseline CKD likely due to CHF, vascular disease, hypertension, and age-related change outpatient and inpatient labs noted: 1.5 - 1.7mg/dl in 2022 2.1 ? 2.4mg/dl since Oct 2023 on admission to [facility] (12/09), creatinine 2.8mg/dl with a BUN of 108 BUN/Cr worsened to 126/3.64 on 12/15/23 based on review of hospital records and discussion with patient, this may have progressed to ESRD (to maintain fluid status and provide clearance) was following with Dr. Goetz during acute hospitalization at [facility] plan next HD on Thursday holding diuretics given issues with hypotension follow electrolytes, volume status, and clearance (2) Sepsis: Qualifiers: Sepsis type: sepsis due to unspecified organism Sepsis acute organ dysfunction status: without acute organ dysfunction Qualified Code(s): A41.9 - Sepsis, unspecified organism Code(s): A41.9 - Sepsis, unspecified organism Status: Acute Assessment and Plan: based on presentation with hypoxia, increased RR, cough and hypotension BP better s/p 500cc NS bolus on admission lactic acid normal at baseline, systolic BP runs in the 100 - 110 systolic range follow culture data on antibiotics (3) Pneumonia: Qualifiers: Pneumonia type: due to unspecified organism Laterality: bilateral Lung location: unspecified part of lung Qualified Code(s): J18.9 - Pneumonia, unspecified organism Code(s): J18.9 - Pneumonia, unspecified organism Status: Acute Assessment and Plan: admission CXR suggestive evidence of tachypnea and hypoxia on presentation follow cultures on antibiotics oxygen support and bronchodilators follow respiratory status (4) Anemia: Code(s): D64.9 - Anemia, unspecified Status: Acute Assessment and Plan: due to ZELDA/CKD and dialysis Epogen with HD follow trend of H/H (5) Edema: Code(s): R60.9 - Edema, unspecified Status: Chronic Assessment and Plan: due to renal dysfunction, CHF/cardiorenal syndrome and PVD element of liver dysfunction playing a role consider further imaging (CT chest/abd/pelvis) fluid removal with HD as tolerated however, does not tolerated aggressive ultrafiltration (6) Paroxysmal A-fib: Code(s): I48.0 - Paroxysmal atrial fibrillation Status: Acute Assessment and Plan: rate control strategy - on amiodarone on warfarin for anticoagulation - follow PT/INR Will continue to follow. 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 No apparent distress noted at the time of my visit; remains on baseline supplemental oxygen of 2L with stable/adequate oxygen saturation; denies any shortness of breath or discomfort currently; afebrile with stable hemodynamics noted; no other acute complaints voiced. Exam Narrative: General: elderly male in NAD Heart: normal S1 and S2; no rub Lungs: clear anteriorly, decreased at bases Abdomen: soft, nontender, mild distension, positive bowel sounds Extremities: no cyanosis or clubbing; 3+ edema Skin: warm and dry; dressings noted on UEs Objective Data Vital Signs Vital Signs: Vital Signs Temp Pulse Resp BP Pulse Ox O2 Del Method O2 Flow Rate 12/28/23 10:00 96.1 F L 74 19 96/70 L 96 12/28/23 10:00 78 12/28/23 10:06 77 15 12/28/23 09:59 70 16 12/28/23 09:59 93 Nasal Cannula 2 12/28/23 08:00 70 21 H 96 Nasal Cannula 2 12/28/23 08:00 70 12/28/23 08:00 95.
[2023-12-28] MEDS: AZITHROMYCIN 250 MG TABLET 500 MG PO (11:42)
--- NOTE | 2023-12-28 12:40 | IVDEFINITY ---
Prior to administration of IV Definity the patient was educated on the risks and benefits of the imaging enhancing agent including potential adverse side effects. The patient verbalized understanding. Allergies were verified. No exclusion criteria were identified and at least one of the following inclusion criteria were met: 1) physician request, 2) patient technically difficult to image (per the [place] [employer] guidelines of two or more segments not discernable within the apical view), or 3) questionable left ventricular function. ?
[2023-12-28] MEDS: WARFARIN (*PBKC) 3 MG TABLET PO (17:05)
[2023-12-28] MEDS: CEFEPIME 1 GM/NS 50 ML 1 GM/50 ML BAG IVPB (20:54)
[2023-12-28] MEDS: VANCOMYCIN 1,500 MG/NS 500 ML 1,500 MG/500 ML BAG 250 MG IVPB (22:53)
[2023-12-29] VITALS (38 sets, daily range): BP systolic 102–124; BP diastolic 31–70; PULSE 70–81; RESP 13–27; TEMP 35.9–37.3; O2SAT 92–100
[2023-12-29] MEDS: IPRATROPIUM 0.5 MG/ALBUTEROL SULFATE 2.5 MG AMPUL.NEB 3 ML INHALATION ×3 (02:35→20:12)
--- NOTE | 2023-12-29 02:42 | PC.NURSE ---
Patient noted to have increased WOB and desatting into the 80s and rebounding to low 90s on 3L. Respiratory administered scheduled breathing treatment and increased O2 to 5L. Dr Raines called to request Lasix if appropriate due to crackles in lungs and patient HD not getting HD on scheduled day. Order for 10mg Lasix now received.
[2023-12-29] MEDS: FUROSEMIDE INJ 40 MG/4 ML VIAL 10 MG IV PUSH (02:51)
[2023-12-29 04:30] LABS: Basophils Absolute Auto 0.1 K/mm3 (0.0-0.1); Basophils Percent Auto 0.7 % (0.2-1.2); Eosinophils Absolute Auto 0.4 K/mm3 (0-0.3); Eosinophils Percent Auto 3.9 % (0-4.4); Hematocrit 30.2 % (42.0-52.0); Hemoglobin 8.8 g/dL (14.0-18.0); Immature Granulocyte Absolute 0.18 K/mm3 (0.00-0.031); Immature Granulocyte Percent A 1.7 % (0-0.5); Lymphocytes Absolute Auto 0.66 K/mm3 (0.9-3.2); Lymphocytes Percent Auto 6.1 % (18.3-44.2); Mean Corpuscular HGB Conc 29.1 g/dl (32-36); Mean Corpuscular Hemoglobin 27.5 pg (26-34); Mean Corpuscular Volume 94.4 fl (80-100); Monocytes Absolute Auto 0.9 K/mm3 (0.1-0.6); Monocytes Percent Auto 8.4 % (2.6-8.5); Neutrophils Absolute Auto 8.6 K/mm3 (1.3-6.7); Neutrophils Percent Auto 79.2 % (45.5-73.1); Platelet Count Result 206 k/mm3 (150-375); Red Cell Distribution Width 17.8 % (11.5-14.5); White Blood Count 10.9 K/mm3 (4.5-10.0)
[2023-12-29 04:36] LABS: Estimated CRCL calculation 19 ml/min; Estimated Glomerular Filt Rate 19; Magnesium 2.1 mg/dL (1.6-2.3); Phosphorus 5.1 mg/dL (2.5-4.5)
[2023-12-29 04:44] LABS: Iron 31 ug/dL (49-181)
[2023-12-29 04:53] LABS: Percent Iron Saturation 12 % (20-50)
[2023-12-29 04:55] LABS: INR 2.6; Prothrombin Time 29.3 Seconds (11.1-14.7)
[2023-12-29 04:56] LABS: Partial Thromboplastin Time 44.4 Seconds (22.3-36.8)
[2023-12-29 05:44] LABS: Folic Acid 9.7 ng/mL (2.76->20); Vitamin B12 > 1000.0 pg/mL (239-931)
[2023-12-29 06:27] LABS: Anion Gap 13 mmol/L (8-16); Blood Urea Nitrogen 58 mg/dL (9-20); Calcium 9.1 mg/dL (8.4-10.2); Carbon Dioxide 21 mmol/L (22-30); Chloride 100 mmol/L (98-107); Estimated CRCL calculation 17 ml/min; Estimated Glomerular Filt Rate 19; Glucose 99 mg/dL (65-110); Potassium 4.5 mmol/L (3.4-5.0); Sodium 134 mmol/L (137-145)
[2023-12-29 06:55] LABS: Hepatitis B Surface Antigen Negative (Negative)
[2023-12-29] MEDS: SODIUM CHLORIDE 0.9% IV 1,000 ML 999 ML IV CONT (07:00)
[2023-12-29 07:13] LABS: Hepatitis B Surface Anti Res Negative
[2023-12-29] MEDS: MIDODRINE HCL 10 MG TABLET PO ×3 (07:18→17:31)
[2023-12-29] MEDS: ALBUMIN HUMAN 25% 12.5 GM/50ML 50 ML 999 GM (07:45)
[2023-12-29] MEDS: ALBUMIN HUMAN 25% 12.5 GM/50ML 100 ML 999 GM (08:58)
--- NOTE | 2023-12-29 09:05 | PM.PNNEP ---
Progress Note: A&P Assessment and Plan (1) Acute kidney injury superimposed on CKD: Code(s): N17.9 - Acute kidney failure, unspecified; N18.9 - Chronic kidney disease, unspecified Status: Acute Assessment and Plan: dialysis dependent at this time baseline CKD likely due to CHF, vascular disease, hypertension, and age-related change outpatient and inpatient labs noted: 1.5 - 1.7mg/dl in 2022 2.1 ? 2.4mg/dl since Oct 2023 on admission to [facility] (12/09), creatinine 2.8mg/dl with a BUN of 108 BUN/Cr worsened to 126/3.64 on 12/15/23 based on review of hospital records and discussion with patient, this may have progressed to ESRD (to maintain fluid status and provide clearance) was following with Dr. Goetz during acute hospitalization at [facility] HD today holding diuretics given issues with hypotension on admission follow electrolytes, volume status, and clearance (2) Sepsis: Qualifiers: Sepsis type: sepsis due to unspecified organism Sepsis acute organ dysfunction status: without acute organ dysfunction Qualified Code(s): A41.9 - Sepsis, unspecified organism Code(s): A41.9 - Sepsis, unspecified organism Status: Acute Assessment and Plan: based on presentation with hypoxia, increased RR, cough and hypotension BP better s/p 500cc NS bolus on admission along with IV albumin lactic acid normal at baseline, systolic BP runs in the 100 - 110 systolic range follow culture data on antibiotics (3) Pneumonia: Qualifiers: Pneumonia type: due to unspecified organism Laterality: bilateral Lung location: unspecified part of lung Qualified Code(s): J18.9 - Pneumonia, unspecified organism Code(s): J18.9 - Pneumonia, unspecified organism Status: Acute Assessment and Plan: admission CXR suggestive evidence of tachypnea and hypoxia on presentation follow cultures on antibiotics oxygen support and bronchodilators follow respiratory status (4) Anemia: Code(s): D64.9 - Anemia, unspecified Status: Acute Assessment and Plan: due to ZELDA/CKD and dialysis Epogen with HD anemia studies with iron deficiency would hold IV iron in the setting of infection follow trend of H/H (5) Edema: Code(s): R60.9 - Edema, unspecified Status: Chronic Assessment and Plan: due to renal dysfunction, CHF/cardiorenal syndrome and PVD element of liver dysfunction playing a role(?) consider further imaging (CT chest/abd/pelvis) fluid removal with HD as tolerated however, does not tolerated aggressive ultrafiltration (6) Paroxysmal A-fib: Code(s): I48.0 - Paroxysmal atrial fibrillation Status: Acute Assessment and Plan: rate control strategy - on amiodarone on warfarin for anticoagulation - follow PT/INR Will continue to follow. 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 Transitioned to IMU status; tolerating dialysis treatment at the time of my visit (seen on HD at 8:55AM); breathing/respiratory status stable if not better at this time; stable hemodynamics in the last 24 hours as well; still with issues related to weeping wounds in spite of dressings; no apparent distress noted. Exam Narrative: General: elderly male in NAD Heart: normal S1 and S2; no rub Lungs: clear anteriorly, decreased at bases Abdomen: soft, nontender, mild distension, positive bowel sounds Extremities: no cyanosis or clubbing; 3+ edema Skin: warm and intact; some weeping; dressings noted on UEs Objective Data Vital Signs Vital Signs: Vital Signs Temp Pulse Resp BP Pulse Ox O2 Del Method O2 Flow Rate 12/29/23 08:45 81 113/51 L 12/29/23 08:30 75 109/49 L 12/29/23 08:15 73 109/49 L
--- NOTE | 2023-12-29 09:05 | P.PNNP_ITS ---
Progress Note: A&P Assessment and Plan (1) Acute kidney injury superimposed on CKD: Code(s): N17.9 - Acute kidney failure, unspecified; N18.9 - Chronic kidney disease, unspecified Status: Acute Assessment and Plan: * dialysis dependent at this time * baseline CKD likely due to CHF, vascular disease, hypertension, and age- related change * outpatient and inpatient labs noted: * 1.5 - 1.7mg/dl in 2022 * 2.1 ? 2.4mg/dl since Oct 2023 * on admission to [facility] (12/09), creatinine 2.8mg/dl with a BUN of 108 * BUN/Cr worsened to 126/3.64 on 12/15/23 * based on review of hospital records and discussion with patient, this may have progressed to ESRD (to maintain fluid status and provide clearance) * was following with Dr. Goetz during acute hospitalization at [facility] * HD today * holding diuretics given issues with hypotension on admission * follow electrolytes, volume status, and clearance (2) Sepsis: Qualifiers: Sepsis type: sepsis due to unspecified organism Sepsis acute organ dysfunction status: without acute organ dysfunction Qualified Code(s): A41.9 - Sepsis, unspecified organism Code(s): A41.9 - Sepsis, unspecified organism Status: Acute Assessment and Plan: * based on presentation with hypoxia, increased RR, cough and hypotension * BP better s/p 500cc NS bolus on admission along with IV albumin * lactic acid normal * at baseline, systolic BP runs in the 100 - 110 systolic range * follow culture data * on antibiotics (3) Pneumonia: Qualifiers: Pneumonia type: due to unspecified organism Laterality: bilateral Lung location: unspecified part of lung Qualified Code(s): J18.9 - Pneumonia, unspecified organism Code(s): J18.9 - Pneumonia, unspecified organism Status: Acute Assessment and Plan: * admission CXR suggestive * evidence of tachypnea and hypoxia on presentation * follow cultures * on antibiotics * oxygen support and bronchodilators * follow respiratory status (4) Anemia: Code(s): D64.9 - Anemia, unspecified Status: Acute Assessment and Plan: * due to ZELDA/CKD and dialysis * Epogen with HD * anemia studies with iron deficiency * would hold IV iron in the setting of infection * follow trend of H/H (5) Edema: Code(s): R60.9 - Edema, unspecified Status: Chronic Assessment and Plan: * due to renal dysfunction, CHF/cardiorenal syndrome and PVD * element of liver dysfunction playing a role(?) * consider further imaging (CT chest/abd/pelvis) * fluid removal with HD as tolerated * however, does not tolerated aggressive ultrafiltration (6) Paroxysmal A-fib: Code(s): I48.0 - Paroxysmal atrial fibrillation Status: Acute Assessment and Plan: * rate control strategy - on amiodarone * on warfarin for anticoagulation - follow PT/INR Will continue to follow. 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 Transitioned to IMU status; tolerating dialysis treatment at the time of my visit (seen on HD at 8:55AM); breathing/respiratory status stable if not better at this time; stable hemodynamics in the last 24 hours as well; still with is sues related to weeping wounds in spite of dressings; no apparent distress noted. Exam Narrative: General: elderly [place]
[2023-12-29] MEDS: EPOETIN ALFA-EPBX 10,000 UNITS/ML VIAL 10000 UNITS IV PUSH (09:13)
[2023-12-29] MEDS: HEPARIN SODIUM 1,000 UNITS/ML VIAL 5000 UNITS (09:15)
[2023-12-29 10:35] LABS: Vancomycin Random 5.8 ug/mL (10-20)
[2023-12-29] MEDS: AZITHROMYCIN 250 MG TABLET 500 MG PO (12:15)
[2023-12-29] MEDS: WARFARIN (*PBKC) 3 MG TABLET PO (17:31)
--- NOTE | 2023-12-29 17:56 | PM.IMPN ---
Progress Note: A&P Assessment and Plan (1) Pneumonia: Qualifiers: Pneumonia type: due to unspecified organism Laterality: bilateral Lung location: unspecified part of lung Qualified Code(s): J18.9 - Pneumonia, unspecified organism Code(s): J18.9 - Pneumonia, unspecified organism Status: Acute Assessment and Plan: 12/27/2023: Patient presented from the rehab facility with shortness of breath and hypoxia, normally on 3 L oxygen which had to be bumped to 5 L with adequate O2 sats. The ER he was saturating much better so a oxygen was dialed down to 3 L nasal cannula. -12/26: chest x-ray admission showed interval development of extensive patchy bilateral airspace disease, compatible with pneumonia, pacemaker leads are stable, and a prosthetic heart valve, status post median sternotomy for CABG, moderate cardiomegaly, central venous catheter tip in SVC -continue bronchodilators -continue vancomycin and cefepime (12/26) -12/26: Preliminary blood cultures are negative so far -continue supplemental oxygen to maintain O2 sats > 92% (2) Sepsis: Qualifiers: Sepsis type: sepsis due to unspecified organism Sepsis acute organ dysfunction status: without acute organ dysfunction Qualified Code(s): A41.9 - Sepsis, unspecified organism Code(s): A41.9 - Sepsis, unspecified organism Status: Acute Assessment and Plan: Patient presented with hypoxia with O2 sats in the 80s, tachypnea, cough, hypotension -lactic acid is within normal limits -continue antibiotics as above -patient received 500 mL IV fluid bolus in the ER -given patient has a history of end-stage renal disease, will infuse albumin for volume expansion -according the patient, his systolic blood pressures normally run in the 100s -continue midodrine, since patient has cardiorenal syndrome -12/27 : RUQ ultrasound showed cirrhosis of liver, 2.2 cm cystic mass in the interval abutting the gallbladder diagnosis could include hemorrhagic cyst, abscess, malignancy. Small volume perihepatic ascites, CT scan without and with contrast is recommended -12/28 : GI consult ordered for evaluation and further treatment recommendations (3) Paroxysmal A-fib: Code(s): I48.0 - Paroxysmal atrial fibrillation Status: Acute Assessment and Plan: History of paroxysmal AFib -continue p.o. amiodarone and Coumadin for anticoagulation -currently paced rhythm and stable (4) SSS (sick sinus syndrome): Code(s): I49.5 - Sick sinus syndrome Status: Acute Assessment and Plan: Patient with history of sick sinus syndrome with pacemaker in place (5) Edema: Code(s): R60.9 - Edema, unspecified Status: Chronic Assessment and Plan: Bilateral lower extremity edema, multifactorial -could be related due to cardiomyopathy, renal failure, hepatic dysfunction -elevated bilirubin, right upper quadrant ultrasound showed cirrhosis -abdominal is also distended, will obtain obstructive series -continue albumin for now -patient is on dialysis for fluid removal (6) Renal failure: Code(s): N19 - Unspecified kidney failure Status: Acute Assessment and Plan: Patient with acute on chronic kidney disease on HD (M, W, F) -recently started on dialysis on 12/15/2023 at [facility] where he was diagnosed with cardiorenal syndrome -patient has a tunnel dialysis catheter which was placed on 12/15/2023 -nephrology has been consulted -dialysis per Nephrology -will hold Lasix and metolazone due to hypotension -continue with hemodialysis -Further management recommendations as per Nephrology (7) Debilitated: Code(s): R53.81 - Other malaise Status: Acute Assessment and Plan: Patient at rehab facility for debilitation, he states he has not been able to get up and walk. -once he is stable will have PT/OT evaluate the patient Plan DVT prophylaxis: Coumadin Stress ulcer prophylaxis:
[2023-12-29] MEDS: CEFEPIME 1 GM/NS 50 ML 1 GM/50 ML BAG IVPB (20:39)
[2023-12-29] MEDS: SENNA/DOCUSATE SODIUM TABLET 2 TAB PO (22:08)
[2023-12-30] VITALS (20 sets, daily range): BP systolic 107–117; BP diastolic 51–54; PULSE 69–80; RESP 18–25; TEMP 36–36.7; O2SAT 90–94
[2023-12-30] MEDS: IPRATROPIUM 0.5 MG/ALBUTEROL SULFATE 2.5 MG AMPUL.NEB 3 ML INHALATION ×3 (01:26→21:22)
[2023-12-30 04:10] LABS: Basophils Absolute Auto 0.1 K/mm3 (0.0-0.1); Basophils Percent Auto 0.6 % (0.2-1.2); Eosinophils Absolute Auto 0.4 K/mm3 (0-0.3); Eosinophils Percent Auto 3.2 % (0-4.4); Hematocrit 29.3 % (42.0-52.0); Hemoglobin 8.7 g/dL (14.0-18.0); Immature Granulocyte Absolute 0.24 K/mm3 (0.00-0.031); Immature Granulocyte Percent A 2.2 % (0-0.5); Lymphocytes Absolute Auto 0.73 K/mm3 (0.9-3.2); Lymphocytes Percent Auto 6.6 % (18.3-44.2); Mean Corpuscular HGB Conc 29.7 g/dl (32-36); Mean Corpuscular Hemoglobin 27.7 pg (26-34); Mean Corpuscular Volume 93.3 fl (80-100); Mean Platelet Volume 10.2 fl (7.4-10.4); Monocytes Absolute Auto 1.1 K/mm3 (0.1-0.6); Monocytes Percent Auto 9.6 % (2.6-8.5); Neutrophils Absolute Auto 8.7 K/mm3 (1.3-6.7); Neutrophils Percent Auto 77.8 % (45.5-73.1); Platelet Count Result 194 k/mm3 (150-375); Red Blood Count 3.14 M/mm3 (4.6-6.20); Red Cell Distribution Width 18.2 % (11.5-14.5); White Blood Count 11.1 K/mm3 (4.5-10.0)
[2023-12-30 04:22] LABS: INR 2.8; Partial Thromboplastin Time 53.7 Seconds (22.3-36.8); Prothrombin Time 31.5 Seconds (11.1-14.7)
[2023-12-30 04:47] LABS: Anisocytosis 1+; Hypochromasia 1+; Ovalocytes 1+; Platelet Estimate Adequate (Adequate); Poikilocytosis 1+; Schistocytes None Seen
[2023-12-30 04:57] LABS: Alanine Aminotransferase 16 U/L (6-50); Albumin Level 3.8 g/dL (3.5-5.1); Alkaline Phosphatase 204 U/L (38-126); Anion Gap 11 mmol/L (4-12); Aspartate Amino Transferase 46 U/L (17-59); Bilirubin,Total 2.7 mg/dL (0.2-1.3); Blood Urea Nitrogen 45 mg/dL (9-20); Calcium 9.3 mg/dL (8.4-10.2); Carbon Dioxide 22 mmol/L (22-30); Chloride 102 mmol/L (98-107); Estimated CRCL calculation 18 ml/min; Estimated Glomerular Filt Rate 21; Glucose 101 mg/dL (65-110); Magnesium 2.1 mg/dL (1.6-2.3); Phosphorus 4.3 mg/dL (2.5-4.5); Potassium 4.2 mmol/L (3.4-5.0); Sodium 135 mmol/L (137-145)
[2023-12-30] MEDS: AZITHROMYCIN 250 MG TABLET 500 MG PO (07:56)
[2023-12-30] MEDS: MIDODRINE HCL 10 MG TABLET PO ×3 (07:57→17:10)
[2023-12-30] MEDS: IRON SUCROSE COMPLEX 300 MG in SODIUM CHLORIDE 0.9% IV 250 ML 177 MG IVPB (10:27)
--- NOTE | 2023-12-30 11:22 | WPDGICN ---
Assessment and Plan Assessment and plan (1) Liver mass: Code(s): R16.0 - Hepatomegaly, not elsewhere classified Status: Acute Assessment and Plan: 2.2 cm cystic mass in the liver abutting the gallbladder. The differential diagnosis includes hemorrhagic cyst, abscess, and malignancy. Spoke with radiologist, due to CKD and on dialysis less then 3 months, contrast can not be administered, will proceed with CT of abdomen/pelvis without contrast. Pt has pacemaker so not able to have MRI. (2) Cirrhosis: Code(s): K74.60 - Unspecified cirrhosis of liver Status: Acute Assessment and Plan: dx 2 years ago, no heavy alcohol consumption of family hx of chronic liver disease. idiopathic. once able to get paracentesis with calculate a SAAG. will complete liver work-up to r/o chronic liver disease. (3) Ascites: Code(s): R18.8 - Other ascites Status: Acute Assessment and Plan: Small volume of perihepatic ascites not on abdominal US two ago. suspect this is getting worse due to visible abdominal distention. likely will need therapeutic and diagnostic paracentesis but will see if CT scan first. Diuretics per nephrology, Currently on hold due to hypotension. (4) Acute kidney injury superimposed on CKD: Code(s): N17.9 - Acute kidney failure, unspecified; N18.9 - Chronic kidney disease, unspecified Status: Acute Assessment and Plan: nephrology following, last dialysis was yesterday. (5) Sepsis: Qualifiers: Sepsis type: sepsis due to unspecified organism Sepsis acute organ dysfunction status: without acute organ dysfunction Qualified Code(s): A41.9 - Sepsis, unspecified organism Code(s): A41.9 - Sepsis, unspecified organism Status: Acute Assessment and Plan: on antibiotics (6) Pneumonia: Qualifiers: Pneumonia type: due to unspecified organism Laterality: bilateral Lung location: unspecified part of lung Qualified Code(s): J18.9 - Pneumonia, unspecified organism Code(s): J18.9 - Pneumonia, unspecified organism Status: Acute (7) Anemia: Code(s): D64.9 - Anemia, unspecified Status: Acute (8) Edema: Code(s): R60.9 - Edema, unspecified Status: Chronic (9) Paroxysmal A-fib: Code(s): I48.0 - Paroxysmal atrial fibrillation Status: Acute Assessment and Plan: on warfarin GI Consult Note Consult date/time: 12/30/23 11:22 Reason for consult: Abnormal liver US, liver cirrhosis/mass. HPI: Haresh Perez is a 83 year old history of a-fib, CKD (recently started on dialysis), Anemia, sick sinus syndrome with pacemaker insertion, HTN, CAD s/p CABG who presented to [place] [facility] for reported hypoxia and hypotension from Rehab facility. Chest X-ray was obtained that showed interval development of extensive patchy bilateral airspace disease, compatible with pneumonia and cardiomegaly. Labs revealed tbili elevation at 2.7 and ALK phos elevated at 204 with normal AST/ALT. Plts 194, INR 2.8. cholestatic liver injury pattern. Abdominal ultrasound showed 1. Cirrhosis of the liver. 2. 2.2 cm cystic mass in the liver abutting the gallbladder. The differential diagnosis includes hemorrhagic cyst, abscess, and malignancy. Abdomen CT without and with contrast is recommended. 3. Small volume of perihepatic ascites. Patient states he was 1st diagnosed with cirrhosis approximately 2 years and followed up with [facility] but hasnt been seen since. unknown cause of cirrhosis. He report drinking a 6 pack per week for approximately 5 years but has not drink in the last 2 years. He denies any family history of chronic liver disease or liver cancers. patient does state over the past month that his notice that is his abdomen has gotten bigger. He denies any RUQ pain, nausea or vomiting. He denies any jaundice. He denies any black or bloody stools. He denies any prior history of EGD or Col
[2023-12-30 12:58] LABS: Hepatitis B Surface Antigen Negative (Negative)
[2023-12-30 13:04] LABS: HAV RESULT Negative (Negative); Hepatitis B Core IgM Result Negative (Negative)
[2023-12-30 13:16] LABS: Hepatitis C Virus Antibody Negative (Negative)
--- NOTE | 2023-12-30 13:16 | PM.PNNEP ---
Progress Note: A&P Assessment and Plan (1) Acute kidney injury superimposed on CKD: Code(s): N17.9 - Acute kidney failure, unspecified; N18.9 - Chronic kidney disease, unspecified Status: Acute Assessment and Plan: dialysis dependent at this time baseline CKD likely due to CHF, vascular disease, hypertension, and age-related change outpatient and inpatient labs noted: 1.5 - 1.7mg/dl in 2022 2.1 ? 2.4mg/dl since Oct 2023 on admission to [facility] (12/09), creatinine 2.8mg/dl with a BUN of 108 BUN/Cr worsened to 126/3.64 on 12/15/23 based on review of hospital records and discussion with patient, this may have progressed to ESRD (to maintain fluid status and provide clearance) was following with Dr. Goetz during acute hospitalization at [facility] HD tomorrow and continue T/T/S schedule for now holding diuretics given issues with hypotension on admission follow electrolytes, volume status, and clearance (2) Sepsis: Qualifiers: Sepsis acute organ dysfunction status: without acute organ dysfunction Sepsis type: sepsis due to unspecified organism Qualified Code(s): A41.9 - Sepsis, unspecified organism Code(s): A41.9 - Sepsis, unspecified organism Status: Acute Assessment and Plan: based on presentation with hypoxia, increased RR, cough and hypotension BP better s/p 500cc NS bolus on admission along with IV albumin lactic acid normal at baseline, systolic BP runs in the 100 - 110 systolic range follow culture data on antibiotics (3) Pneumonia: Qualifiers: Laterality: bilateral Lung location: unspecified part of lung Pneumonia type: due to unspecified organism Qualified Code(s): J18.9 - Pneumonia, unspecified organism Code(s): J18.9 - Pneumonia, unspecified organism Status: Acute Assessment and Plan: admission CXR suggestive evidence of tachypnea and hypoxia on presentation follow cultures on antibiotics oxygen support and bronchodilators follow respiratory status (4) Anemia: Code(s): D64.9 - Anemia, unspecified Status: Acute Assessment and Plan: due to ZELDA/CKD and dialysis Epogen with HD anemia studies with iron deficiency would hold IV iron in the setting of infection follow trend of H/H (5) Edema: Code(s): R60.9 - Edema, unspecified Status: Chronic Assessment and Plan: due to renal dysfunction, CHF/cardiorenal syndrome and PVD suspect an element of liver dysfunction playing a role as well fluid removal with HD as tolerated however, does not tolerated aggressive ultrafiltration (6) Cirrhosis: Code(s): K74.60 - Unspecified cirrhosis of liver Status: Acute Assessment and Plan: known issues for the laast couple of years issues with ascites noted more recently GI recommendations noted (7) Paroxysmal A-fib: Code(s): I48.0 - Paroxysmal atrial fibrillation Status: Acute Assessment and Plan: rate control strategy - on amiodarone on warfarin for anticoagulation - follow PT/INR Will continue to follow. 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 Tolerated dialysis treatmenbt yesterday without any issue or problems; feels a little weak but he notes he always feel like this following a dialysis treatment; no apparent distress; breathing/respiratoru status stable but still with weeping seconeary to edema/fluid retention. Exam Narrative: General: elderly male in NAD Heart: normal S1 and S2; no rub Lungs: clear anteriorly, decreased at bases Abdomen: soft, nontender, mild distension, positive bowel sounds Extremities: no cyanosis or clubbing; 3+ edema Skin: no rash; some weeping; dressings noted on UEs Objective Data Vital Si
--- NOTE | 2023-12-30 13:16 | P.PNNP_ITS ---
Progress Note: A&P Assessment and Plan (1) Acute kidney injury superimposed on CKD: Code(s): N17.9 - Acute kidney failure, unspecified; N18.9 - Chronic kidney disease, unspecified Status: Acute Assessment and Plan: * dialysis dependent at this time * baseline CKD likely due to CHF, vascular disease, hypertension, and age- related change * outpatient and inpatient labs noted: * 1.5 - 1.7mg/dl in 2022 * 2.1 ? 2.4mg/dl since Oct 2023 * on admission to [facility] (12/09), creatinine 2.8mg/dl with a BUN of 108 * BUN/Cr worsened to 126/3.64 on 12/15/23 * based on review of hospital records and discussion with patient, this may have progressed to ESRD (to maintain fluid status and provide clearance) * was following with Dr. Goetz during acute hospitalization at [facility] * HD tomorrow and continue T/T/S schedule for now * holding diuretics given issues with hypotension on admission * follow electrolytes, volume status, and clearance (2) Sepsis: Qualifiers: Sepsis acute organ dysfunction status: without acute organ dysfunction Sepsis type: sepsis due to unspecified organism Qualified Code(s): A41.9 - Sepsis, unspecified organism Code(s): A41.9 - Sepsis, unspecified organism Status: Acute Assessment and Plan: * based on presentation with hypoxia, increased RR, cough and hypotension * BP better s/p 500cc NS bolus on admission along with IV albumin * lactic acid normal * at baseline, systolic BP runs in the 100 - 110 systolic range * follow culture data * on antibiotics (3) Pneumonia: Qualifiers: Laterality: bilateral Lung location: unspecified part of lung Pneumonia type: due to unspecified organism Qualified Code(s): J18.9 - Pneumonia, unspecified organism Code(s): J18.9 - Pneumonia, unspecified organism Status: Acute Assessment and Plan: * admission CXR suggestive * evidence of tachypnea and hypoxia on presentation * follow cultures * on antibiotics * oxygen support and bronchodilators * follow respiratory status (4) Anemia: Code(s): D64.9 - Anemia, unspecified Status: Acute Assessment and Plan: * due to ZELDA/CKD and dialysis * Epogen with HD * anemia studies with iron deficiency * would hold IV iron in the setting of infection * follow trend of H/H (5) Edema: Code(s): R60.9 - Edema, unspecified Status: Chronic Assessment and Plan: * due to renal dysfunction, CHF/cardiorenal syndrome and PVD * suspect an element of liver dysfunction playing a role as well * fluid removal with HD as tolerated * however, does not tolerated aggressive ultrafiltration (6) Cirrhosis: Code(s): K74.60 - Unspecified cirrhosis of liver Status: Acute Assessment and Plan: * known issues for the laast couple of years * issues with ascites noted more recently * GI recommendations noted (7) Paroxysmal A-fib: Code(s): I48.0 - Paroxysmal atrial fibrillation Status: Acute Assessment and Plan: * rate control strategy - on amiodarone * on warfarin for anticoagulation - follow PT/INR Will continue to follow. 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 Tolerated dialysis treatmenbt yesterday without any issue or problems; feels a little weak but he notes he always feel like this fo
[2023-12-30 13:21] LABS: Mycoplasma IgM Antibody Titer 314 U/mL (<770)
[2023-12-30] MEDS: WARFARIN (*PBKC) 3 MG TABLET PO (17:10)
--- NOTE | 2023-12-30 18:27 | PM.IMPN ---
Progress Note: A&P Assessment and Plan (1) Pneumonia: Qualifiers: Pneumonia type: due to unspecified organism Laterality: bilateral Lung location: unspecified part of lung Qualified Code(s): J18.9 - Pneumonia, unspecified organism Code(s): J18.9 - Pneumonia, unspecified organism Status: Acute Assessment and Plan: 12/27/2023: Patient presented from the rehab facility with shortness of breath and hypoxia, normally on 3 L oxygen which had to be bumped to 5 L with adequate O2 sats. The ER he was saturating much better so a oxygen was dialed down to 3 L nasal cannula. -12/26: chest x-ray admission showed interval development of extensive patchy bilateral airspace disease, compatible with pneumonia, pacemaker leads are stable, and a prosthetic heart valve, status post median sternotomy for CABG, moderate cardiomegaly, central venous catheter tip in SVC -continue bronchodilators -continue vancomycin and cefepime (12/26) -12/26: Preliminary blood cultures are negative so far -continue supplemental oxygen to maintain O2 sats > 92% (2) Sepsis: Qualifiers: Sepsis type: sepsis due to unspecified organism Sepsis acute organ dysfunction status: without acute organ dysfunction Qualified Code(s): A41.9 - Sepsis, unspecified organism Code(s): A41.9 - Sepsis, unspecified organism Status: Acute Assessment and Plan: Patient presented with hypoxia with O2 sats in the 80s, tachypnea, cough, hypotension -lactic acid is within normal limits -continue antibiotics as above -patient received 500 mL IV fluid bolus in the ER -given patient has a history of end-stage renal disease, will infuse albumin for volume expansion -according the patient, his systolic blood pressures normally run in the 100s -continue midodrine, since patient has cardiorenal syndrome -12/27 : RUQ ultrasound showed cirrhosis of liver, 2.2 cm cystic mass in the interval abutting the gallbladder diagnosis could include hemorrhagic cyst, abscess, malignancy. Small volume perihepatic ascites, CT scan without and with contrast is recommended -12/28 : GI consult ordered for evaluation and further treatment recommendations -12/29 : GI evaluated patient and ordered a CT scan for further workup (3) Paroxysmal A-fib: Code(s): I48.0 - Paroxysmal atrial fibrillation Status: Acute Assessment and Plan: History of paroxysmal AFib -continue p.o. amiodarone and Coumadin for anticoagulation -currently paced rhythm and stable (4) SSS (sick sinus syndrome): Code(s): I49.5 - Sick sinus syndrome Status: Acute Assessment and Plan: Patient with history of sick sinus syndrome with pacemaker in place (5) Edema: Code(s): R60.9 - Edema, unspecified Status: Chronic Assessment and Plan: Bilateral lower extremity edema, multifactorial -could be related due to cardiomyopathy, renal failure, hepatic dysfunction -elevated bilirubin, right upper quadrant ultrasound showed cirrhosis -abdominal is also distended, will obtain obstructive series -continue albumin for now -patient is on dialysis for fluid removal (6) Renal failure: Code(s): N19 - Unspecified kidney failure Status: Acute Assessment and Plan: Patient with acute on chronic kidney disease on HD (M, W, F) -recently started on dialysis on 12/15/2023 at [facility] where he was diagnosed with cardiorenal syndrome -patient has a tunnel dialysis catheter which was placed on 12/15/2023 -nephrology has been consulted -dialysis per Nephrology -will hold Lasix and metolazone due to hypotension -continue with hemodialysis -Further management recommendations as per Nephrology (7) Debilitated: Code(s): R53.81 - Other malaise Status: Acute Assessment and Plan: Patient at rehab facility for debilitation, he states he has not been able to get up and walk. -once he is stable will have PT/OT evaluate th
[2023-12-30] MEDS: ATORVASTATIN 40 MG TABLET PO (20:20)
[2023-12-30] MEDS: CEFEPIME 1 GM/NS 50 ML 1 GM/50 ML BAG IVPB (20:21)
[2023-12-30 22:11] LABS: Pneumococcal Antigen Urine Not Detected (Not Detected)
[2023-12-31] VITALS (37 sets, daily range): BP systolic 85–133; BP diastolic 33–88; PULSE 73–88; RESP 18–24; TEMP 36.3–37.8; O2SAT 86–96
[2023-12-31] MEDS: IPRATROPIUM 0.5 MG/ALBUTEROL SULFATE 2.5 MG AMPUL.NEB 3 ML INHALATION ×5 (02:21→20:18)
[2023-12-31 03:54] LABS: Basophils Absolute Auto 0.1 K/mm3 (0.0-0.1); Basophils Percent Auto 0.6 % (0.2-1.2); Eosinophils Absolute Auto 0.5 K/mm3 (0-0.3); Eosinophils Percent Auto 3.6 % (0-4.4); Hematocrit 29.2 % (42.0-52.0); Hemoglobin 8.7 g/dL (14.0-18.0); Immature Granulocyte Absolute 0.31 K/mm3 (0.00-0.031); Immature Granulocyte Percent A 2.5 % (0-0.5); Lymphocytes Absolute Auto 0.75 K/mm3 (0.9-3.2); Mean Corpuscular HGB Conc 29.8 g/dl (32-36); Mean Corpuscular Hemoglobin 27.4 pg (26-34); Mean Corpuscular Volume 92.1 fl (80-100); Mean Platelet Volume 10.6 fl (7.4-10.4); Monocytes Absolute Auto 1.2 K/mm3 (0.1-0.6); Monocytes Percent Auto 9.7 % (2.6-8.5); Neutrophils Absolute Auto 9.7 K/mm3 (1.3-6.7); Neutrophils Percent Auto 77.6 % (45.5-73.1); Nucleated Red Blood Cells Perc 0.2 % (0.0-0.2); Platelet Count Result 222 k/mm3 (150-375); Red Blood Count 3.17 M/mm3 (4.6-6.20); White Blood Count 12.5 K/mm3 (4.5-10.0)
[2023-12-31 04:05] LABS: INR 3.2; Prothrombin Time 35.1 Seconds (11.1-14.7)
[2023-12-31 04:06] LABS: Partial Thromboplastin Time 60.1 Seconds (22.3-36.8)
[2023-12-31 04:09] LABS: Alanine Aminotransferase 16 U/L (6-50); Albumin Level 3.7 g/dL (3.5-5.1); Alkaline Phosphatase 213 U/L (38-126); Anion Gap 12 mmol/L (4-12); Aspartate Amino Transferase 47 U/L (17-59); Bilirubin,Total 2.7 mg/dL (0.2-1.3); Blood Urea Nitrogen 55 mg/dL (9-20); Calcium 9.3 mg/dL (8.4-10.2); Carbon Dioxide 19 mmol/L (22-30); Chloride 101 mmol/L (98-107); Estimated CRCL calculation 14 ml/min; Estimated Glomerular Filt Rate 15; Glucose 102 mg/dL (65-110); Magnesium 2.2 mg/dL (1.6-2.3); Phosphorus 4.9 mg/dL (2.5-4.5); Potassium 4.3 mmol/L (3.4-5.0); Sodium 132 mmol/L (137-145)
[2023-12-31 04:22] LABS: Hypochromasia 1+; Platelet Estimate Adequate (Adequate); Schistocytes None Seen
[2023-12-31] MEDS: MIDODRINE HCL 10 MG TABLET PO ×3 (08:34→17:31)
[2023-12-31] MEDS: AZITHROMYCIN 250 MG TABLET 500 MG PO (08:34)
[2023-12-31] MEDS: ALBUMIN HUMAN 25% 12.5 GM/50ML 50 ML 50 GM ×2 (09:51→09:55)
[2023-12-31] MEDS: EPOETIN ALFA-EPBX 10,000 UNITS/ML VIAL 10000 UNITS IV PUSH (10:52)
--- NOTE | 2023-12-31 12:21 | PM.PNNEP ---
Progress Note: A&P Assessment and Plan (1) Acute kidney injury superimposed on CKD: Code(s): N17.9 - Acute kidney failure, unspecified; N18.9 - Chronic kidney disease, unspecified Status: Acute Assessment and Plan: dialysis dependent at this time baseline CKD likely due to CHF, vascular disease, hypertension, and age-related change outpatient and inpatient labs noted: 1.5 - 1.7mg/dl in 2022 2.1 ? 2.4mg/dl since Oct 2023 on admission to [facility] (12/09), creatinine 2.8mg/dl with a BUN of 108 BUN/Cr worsened to 126/3.64 on 12/15/23 Possibly end-stage renal disease now. was following with Dr. Goetz during acute hospitalization at [facility] Getting dialysis now. He still has a lot of fluid on. He might do well with a dry ultrafiltration tomorrow. We may be able to get more fluid off and not drop the blood pressure as much. holding diuretics given issues with hypotension on admission Consider restarting this depending on his blood pressure. follow electrolytes, volume status, and clearance (2) Sepsis: Qualifiers: Sepsis type: sepsis due to unspecified organism Sepsis acute organ dysfunction status: without acute organ dysfunction Qualified Code(s): A41.9 - Sepsis, unspecified organism Code(s): A41.9 - Sepsis, unspecified organism Status: Acute Assessment and Plan: based on presentation with hypoxia, increased RR, cough and hypotension BP better s/p 500cc NS bolus on admission along with IV albumin lactic acid normal at baseline, systolic BP runs in the 100 - 110 systolic range Blood cultures negative on cefepime (3) Pneumonia: Qualifiers: Pneumonia type: due to unspecified organism Laterality: bilateral Lung location: unspecified part of lung Qualified Code(s): J18.9 - Pneumonia, unspecified organism Code(s): J18.9 - Pneumonia, unspecified organism Status: Acute Assessment and Plan: admission CXR suggestive evidence of tachypnea and hypoxia on presentation follow cultures on cefepime and Zithromax oxygen support and bronchodilators follow respiratory status (4) Anemia: Code(s): D64.9 - Anemia, unspecified Status: Acute Assessment and Plan: due to ZELDA/CKD and dialysis Epogen with HD anemia studies with iron deficiency would hold IV iron in the setting of infection Hemoglobin stable in the mid 8 (5) Edema: Code(s): R60.9 - Edema, unspecified Status: Chronic Assessment and Plan: due to renal dysfunction, CHF/cardiorenal syndrome and PVD suspect an element of liver dysfunction playing a role as well fluid removal with HD as tolerated Consider dry ultrafiltration tomorrow (6) Cirrhosis: Code(s): K74.60 - Unspecified cirrhosis of liver Status: Acute Assessment and Plan: known issues for the laast couple of years issues with ascites noted more recently Cirrhosis may be part of the reason he has some trouble with fluid removal GI recommendations noted (7) Paroxysmal A-fib: Code(s): I48.0 - Paroxysmal atrial fibrillation Status: Acute Assessment and Plan: rate control strategy - on amiodarone on warfarin for anticoagulation - follow PT/INR Subjective Date/time seen: 12/31/23 12:21 Interval history: Patient is feeling the same He is still short of breath though. He also still has some swelling. He is on dialysis. His blood pressure dropped early in the treatment but is getting albumin to keep it from going any lower. He was seen at 10:45 a.m. Exam Narrative: General: elderly male in NAD Heart: normal S1 and S2; no rub Lungs: clear anteriorly, decreased at bases Abdomen: soft, nontender, mild distension, positive bowel sounds Extremities: no cyanosis or clubbing; 3+ edema Skin: no rash; some weeping; dressings noted on UEs Objective Data Vital
--- NOTE | 2023-12-31 12:21 | P.PNNP_ITS ---
Progress Note: A&P Assessment and Plan (1) Acute kidney injury superimposed on CKD: Code(s): N17.9 - Acute kidney failure, unspecified; N18.9 - Chronic kidney disease, unspecified Status: Acute Assessment and Plan: * dialysis dependent at this time * baseline CKD likely due to CHF, vascular disease, hypertension, and age- related change * outpatient and inpatient labs noted: * 1.5 - 1.7mg/dl in 2022 * 2.1 ? 2.4mg/dl since Oct 2023 * on admission to [facility] (12/09), creatinine 2.8mg/dl with a BUN of 108 * BUN/Cr worsened to 126/3.64 on 12/15/23 * Possibly end-stage renal disease now. * was following with Dr. Goetz during acute hospitalization at [facility] * Getting dialysis now. He still has a lot of fluid on. * He might do well with a dry ultrafiltration tomorrow. We may be able to get more fluid off and not drop the blood pressure as much. * holding diuretics given issues with hypotension on admission * Consider restarting this depending on his blood pressure. * follow electrolytes, volume status, and clearance (2) Sepsis: Qualifiers: Sepsis type: sepsis due to unspecified organism Sepsis acute organ dysfunction status: without acute organ dysfunction Qualified Code(s): A41.9 - Sepsis, unspecified organism Code(s): A41.9 - Sepsis, unspecified organism Status: Acute Assessment and Plan: * based on presentation with hypoxia, increased RR, cough and hypotension * BP better s/p 500cc NS bolus on admission along with IV albumin * lactic acid normal * at baseline, systolic BP runs in the 100 - 110 systolic range * Blood cultures negative * on cefepime (3) Pneumonia: Qualifiers: Pneumonia type: due to unspecified organism Laterality: bilateral Lung location: unspecified part of lung Qualified Code(s): J18.9 - Pneumonia, unspecified organism Code(s): J18.9 - Pneumonia, unspecified organism Status: Acute Assessment and Plan: * admission CXR suggestive * evidence of tachypnea and hypoxia on presentation * follow cultures * on cefepime and Zithromax * oxygen support and bronchodilators * follow respiratory status (4) Anemia: Code(s): D64.9 - Anemia, unspecified Status: Acute Assessment and Plan: * due to ZELDA/CKD and dialysis * Epogen with HD * anemia studies with iron deficiency * would hold IV iron in the setting of infection * Hemoglobin stable in the mid 8 (5) Edema: Code(s): R60.9 - Edema, unspecified Status: Chronic Assessment and Plan: * due to renal dysfunction, CHF/cardiorenal syndrome and PVD * suspect an element of liver dysfunction playing a role as well * fluid removal with HD as tolerated * Consider dry ultrafiltration tomorrow (6) Cirrhosis: Code(s): K74.60 - Unspecified cirrhosis of liver Status: Acute Assessment and Plan: * known issues for the laast couple of years * issues with ascites noted more recently * Cirrhosis may be part of the reason he has some trouble with fluid removal * GI recommendations noted (7) Paroxysmal A-fib: Code(s): I48.0 - Paroxysmal atrial fibrillation Status: Acute Assessment and Plan: * rate control strategy - on amiodarone * on warfarin for anticoagulation - follow PT/INR Subjective Date/time seen: 12/31/23 12:21 Interval history: Patient is feeling the same He is still short of breath though. He also still has some swelling.
[2023-12-31] MEDS: IRON SUCROSE COMPLEX 300 MG in SODIUM CHLORIDE 0.9% IV 250 ML 177 MG IVPB (13:50)
--- NOTE | 2023-12-31 14:01 | PC.NURSE ---
spoke with on the phone, pt is very unhappy about the nurse who administered his dialysis treatment and would like transferred to [facility], is on her way in to speak with the patient, pt currently resting in bed, no further complaints at this time
--- NOTE | 2023-12-31 15:56 | PC.NURSE ---
dr murphy is here to speak with family
--- NOTE | 2023-12-31 16:52 | WPDGIPROGNO ---
Progress Note: A&P Assessment and Plan (1) Cirrhosis: Code(s): K74.60 - Unspecified cirrhosis of liver Status: Acute Assessment and Plan: ? faith, work up in progress for chronic liver conditions hepatitis negative (2) Ascites: Code(s): R18.8 - Other ascites Status: Acute Assessment and Plan: unable to do paracentesis because anticoagulated with coumadin he is on dialysis, can not get diuretics, also low borderline BP (3) Liver mass: Code(s): R16.0 - Hepatomegaly, not elsewhere classified Status: Acute Assessment and Plan: can not get mri because pacemaker AFP pending will need to establish with hepatology in tertiary center, will send referral CT scan reviewed- 2.2 cm cystic lesion in segment IVb of the liver which appears simple without evident solid soft tissue component on noncontrast imaging. 2. Cirrhosis with large amount of ascites scattered throughout the abdomen and pelvis and extending into small umbilical and paraumbilical ventral hernias. 3. Opacities in the bilateral lower lungs which are concerning for pneumonia with differential including pulmonary edema or chronic interstitial lung disease. 4. Small left and very small right pleural effusion. 5. Cardiomegaly. (4) Pneumonia: Qualifiers: Pneumonia type: due to unspecified organism Laterality: bilateral Lung location: unspecified part of lung Qualified Code(s): J18.9 - Pneumonia, unspecified organism Code(s): J18.9 - Pneumonia, unspecified organism Status: Acute Assessment and Plan: on treatment (5) Acute on chronic renal failure: Code(s): N17.9 - Acute kidney failure, unspecified; N18.9 - Chronic kidney disease, unspecified Status: Acute Assessment and Plan: started on dialysis just weeks ago, cardiorenal sd, also cirrhosis (6) Congestive heart failure: Code(s): I50.9 - Heart failure, unspecified Status: Acute (7) History of permanent cardiac pacemaker placement: Code(s): Z95.0 - Presence of cardiac pacemaker Status: Acute Subjective Date/time seen: 12/31/23 16:52 Interval history: no major changes, still with SOB had CT scan- reviewed Review of Systems Review of Systems: All systems reviewed & are unremarkable except as noted in HPI and below Exam Const: General: comfortable and no acute distress HENMT: Head: normocephalic and atraumatic Eyes: Pupils: Equal, round and reactive pupils present Neck: Neck: supple Resp: Effort & Inspection: normal respiratory effort Auscultation: diminished lung sounds Other: 3L NC Cardio: Rate: regular rate Rhythm: regular rhythm Other: 3+ peripheral edema GI: GI Palp: Yes Soft to palpation and No Guarding due to palpation present (GI) Auscultation: normal bowel sounds Other: ? fluid wave, no pain Skin: General skin exam: no rashes or lesions noted Other: right forearm dressings CDI Neuro: Cranial nerves: Yes Equal, round and reactive pupils present Speech: normal speech Extrem: General: pedal edema Psych: Affect: normal affect Objective Data Vital Signs Vital Signs: Vital Signs - 24 hr 12/30/23 18:00 12/30/23 21:22 12/30/23 21:22 Temperature Pulse Rate 74 77 Respiratory Rate 18 Blood Pressure Pulse Oximetry 91 Oxygen Delivery Nasal Cannula Oxygen Flow Rate 4 12/30/23 20:00 12/30/23 20:00 12/30/23 20:00 Temperature 98.1 F Pulse Rate 77 77 Respiratory Rate 25 H Blood Pressure 109/51 L Pulse Oximetry 92 92 Oxygen Delivery Nasal Cannula Oxygen Flow Rate 4 12/30/23 21:32 12/30/23 22:00 12/31/23 00:00 Temperature Pulse Rate 78 78 74 Respiratory Rate 18 Blood Pressure Pulse Oximetry Oxygen Delivery Oxygen Flow Rate 12/31/23 00:00 12/31/23 02:00 12/31/23 00:00 Temperature 97.6 F Pulse Rate 74 74 Respiratory Rate 23 H Blood Pressure 116/45 L Pulse
--- NOTE | 2023-12-31 17:25 | P.PNIM_ITS ---
Progress Note: A&P Assessment and Plan (1) Pneumonia: Qualifiers: Pneumonia type: due to unspecified organism Laterality: bilateral Lung location: unspecified part of lung Qualified Code(s): J18.9 - Pneumonia, unspecified organism Code(s): J18.9 - Pneumonia, unspecified organism Status: Acute Assessment and Plan: 12/27/2023: Patient presented from the rehab facility with shortness of breath and hypoxia, normally on 3 L oxygen which had to be bumped to 5 L with adequate O2 sats. The ER he was saturating much better so a oxygen was dialed down to 3 L nasal cannula. -12/26: chest x-ray admission showed interval development of extensive patchy bilateral airspace disease, compatible with pneumonia, pacemaker leads are stable, and a prosthetic heart valve, status post median sternotomy for CABG, moderate cardiomegaly, central venous catheter tip in SVC -continue bronchodilators -continue vancomycin and cefepime (12/26) -12/26: Preliminary blood cultures are negative so far -continue supplemental oxygen to maintain O2 sats > 92% (2) Sepsis: Qualifiers: Sepsis type: sepsis due to unspecified organism Sepsis acute organ dysfunction status: without acute organ dysfunction Qualified Code(s): A41.9 - Sepsis, unspecified organism Code(s): A41.9 - Sepsis, unspecified organism Status: Acute Assessment and Plan: Patient presented with hypoxia with O2 sats in the 80s, tachypnea, cough, hypotension -lactic acid is within normal limits -continue antibiotics as above -patient received 500 mL IV fluid bolus in the ER -given patient has a history of end-stage renal disease, will infuse albumin for volume expansion -according the patient, his systolic blood pressures normally run in the 100s -continue midodrine, since patient has cardiorenal syndrome -12/27 : RUQ ultrasound showed cirrhosis of liver, 2.2 cm cystic mass in the interval abutting the gallbladder diagnosis could include hemorrhagic cyst, abscess, malignancy. Small volume perihepatic ascites, CT scan without and with contrast is recommended -12/28 : GI consult ordered for evaluation and further treatment recommendations -12/29 : GI evaluated patient and ordered a CT scan for further workup (3) Paroxysmal A-fib: Code(s): I48.0 - Paroxysmal atrial fibrillation Status: Acute Assessment and Plan: History of paroxysmal AFib -continue p.o. amiodarone and Coumadin for anticoagulation -currently paced rhythm and stable (4) SSS (sick sinus syndrome): Code(s): I49.5 - Sick sinus syndrome Status: Acute Assessment and Plan: Patient with history of sick sinus syndrome with pacemaker in place (5) Edema: Code(s): R60.9 - Edema, unspecified Status: Chronic Assessment and Plan: Bilateral lower extremity edema, multifactorial -could be related due to cardiomyopathy, renal failure, hepatic dysfunction -elevated bilirubin, right upper quadrant ultrasound showed cirrhosis -abdominal is also distended, will obtain obstructive series -continue albumin for now -patient is on dialysis for fluid removal (6) Renal failure: Code(s): N19 - Unspecified kidney failure Status: Acute Assessment and Plan: Patient with acute on chronic kidney disease on HD (M, W, F) -recently started on dialysis on 12/15/2023 at [facility] where he was diagnosed with cardiorenal syndrome -patient has a tunnel dialysis catheter which was placed on 12/15/2023 -nephrology has been consulted -dialysis per Nephrology -will hold Lasix and metolazone due to hypotension -c
[2023-12-31] MEDS: WARFARIN (*PBKC) 3 MG TABLET PO (17:31)
--- NOTE | 2023-12-31 17:52 | PC.NURSE ---
family has left for the day, pt is unsure if his will make it up to see him tonight, the family is aware that dr murphy had requested them to settle on a time to all come up together tomorrow so they could further discuss the plan for pt, no time given upon leaving, family states they will call up here to let us know, pt resting at this time, no needs, no increased work of breathing at this time, call light in reach on lap
[2023-12-31] MEDS: SENNA/DOCUSATE SODIUM TABLET 2 TAB PO (20:10)
[2023-12-31] MEDS: ACETAMINOPHEN 325 MG TABLET 650 MG PO (20:10)
[2023-12-31] MEDS: ATORVASTATIN 40 MG TABLET PO (20:10)
[2023-12-31] MEDS: CEFEPIME 1 GM/NS 50 ML 1 GM/50 ML BAG IVPB (20:50)
[2024-01-01] VITALS (25 sets, daily range): BP systolic 94–118; BP diastolic 44–58; PULSE 70–78; RESP 15–22; TEMP 35.9–36.7; O2SAT 75–96
[2024-01-01 00:29] LABS: Legionella pneumophila Ag Ur Not Detected (Not Detected)
[2024-01-01] MEDS: IPRATROPIUM 0.5 MG/ALBUTEROL SULFATE 2.5 MG AMPUL.NEB 3 ML INHALATION ×4 (02:15→20:30)
[2024-01-01 03:57] LABS: Basophils Absolute Auto 0.1 K/mm3 (0.0-0.1); Basophils Percent Auto 0.6 % (0.2-1.2); Eosinophils Absolute Auto 0.3 K/mm3 (0-0.3); Eosinophils Percent Auto 2.3 % (0-4.4); Hematocrit 28.2 % (42.0-52.0); Hemoglobin 8.2 g/dL (14.0-18.0); Immature Granulocyte Absolute 0.43 K/mm3 (0.00-0.031); Immature Granulocyte Percent A 3.3 % (0-0.5); Lymphocytes Absolute Auto 0.85 K/mm3 (0.9-3.2); Lymphocytes Percent Auto 6.4 % (18.3-44.2); Mean Corpuscular HGB Conc 29.1 g/dl (32-36); Mean Corpuscular Hemoglobin 27.6 pg (26-34); Mean Corpuscular Volume 94.9 fl (80-100); Mean Platelet Volume 10.3 fl (7.4-10.4); Monocytes Absolute Auto 1.2 K/mm3 (0.1-0.6); Monocytes Percent Auto 9.4 % (2.6-8.5); Neutrophils Absolute Auto 10.3 K/mm3 (1.3-6.7); Nucleated Red Blood Cells Perc 0.3 % (0.0-0.2); Platelet Count Result 206 k/mm3 (150-375); Red Blood Count 2.97 M/mm3 (4.6-6.20); Red Cell Distribution Width 18.8 % (11.5-14.5); White Blood Count 13.2 K/mm3 (4.5-10.0)
[2024-01-01 04:07] LABS: INR 3.7; Partial Thromboplastin Time 62.1 Seconds (22.3-36.8); Prothrombin Time 39.4 Seconds (11.1-14.7)
[2024-01-01 04:16] LABS: Anisocytosis 1+; Hypochromasia 1+; Ovalocytes 1+; Platelet Estimate Adequate (Adequate); Schistocytes None Seen
[2024-01-01 04:21] LABS: Alanine Aminotransferase 16 U/L (6-50); Albumin Level 3.6 g/dL (3.5-5.1); Alkaline Phosphatase 203 U/L (38-126); Anion Gap 12 mmol/L (4-12); Aspartate Amino Transferase 55 U/L (17-59); Bilirubin,Total 3.3 mg/dL (0.2-1.3); Blood Urea Nitrogen 38 mg/dL (9-20); Calcium 9.2 mg/dL (8.4-10.2); Carbon Dioxide 25 mmol/L (22-30); Chloride 99 mmol/L (98-107); Estimated CRCL calculation 18 ml/min; Estimated Glomerular Filt Rate 20; Glucose 83 mg/dL (65-110); Magnesium 2.2 mg/dL (1.6-2.3); Phosphorus 4.3 mg/dL (2.5-4.5); Potassium 4.2 mmol/L (3.4-5.0); Sodium 136 mmol/L (137-145)
[2024-01-01] MEDS: AZITHROMYCIN 250 MG TABLET 500 MG PO (08:27)
[2024-01-01] MEDS: MIDODRINE HCL 10 MG TABLET PO ×3 (08:27→18:59)
--- NOTE | 2024-01-01 09:50 | P.PNNP_ITS ---
Progress Note: A&P Assessment and Plan (1) Acute kidney injury superimposed on CKD: Code(s): N17.9 - Acute kidney failure, unspecified; N18.9 - Chronic kidney disease, unspecified Status: Acute Assessment and Plan: * dialysis dependent at this time * baseline CKD likely due to CHF, vascular disease, hypertension, and age- related change * outpatient and inpatient labs noted: * 1.5 - 1.7mg/dl in 2022 * 2.1 ? 2.4mg/dl since Oct 2023 * on admission to [facility] (12/09), creatinine 2.8mg/dl with a BUN of 108 * BUN/Cr worsened to 126/3.64 on 12/15/23 * Possibly end-stage renal disease now. * With his volume overload, he was scheduled for a dry ultrafiltration today. * The patient refused this procedure today. He wishes to talk with his family to discuss aggressiveness of care. (2) Sepsis: Qualifiers: Sepsis type: sepsis due to unspecified organism Sepsis acute organ dysfunction status: without acute organ dysfunction Qualified Code(s): A41.9 - Sepsis, unspecified organism Code(s): A41.9 - Sepsis, unspecified organism Status: Acute Assessment and Plan: * based on presentation with hypoxia, increased RR, cough and hypotension * BP improved lately. * Still a bit soft especially when we try to remove fluid. * lactic acid normal * at baseline, systolic BP runs in the 100 - 110 systolic range * Blood cultures negative * on cefepime (3) Pneumonia: Qualifiers: Pneumonia type: due to unspecified organism Laterality: bilateral Lung location: unspecified part of lung Qualified Code(s): J18.9 - Pneumonia, unspecified organism Code(s): J18.9 - Pneumonia, unspecified organism Status: Acute Assessment and Plan: * admission CXR suggestive * evidence of tachypnea and hypoxia on presentation * follow cultures * on cefepime and Zithromax * oxygen support and bronchodilators * He still needs a lot of oxygen * follow respiratory status (4) Anemia: Code(s): D64.9 - Anemia, unspecified Status: Acute Assessment and Plan: * due to ZELDA/CKD and dialysis * Epogen with HD * anemia studies with iron deficiency * would hold IV iron in the setting of infection * Hemoglobin stable in the mid 8 (5) Edema: Code(s): R60.9 - Edema, unspecified Status: Chronic Assessment and Plan: * due to renal dysfunction, CHF/cardiorenal syndrome and PVD * suspect an element of liver dysfunction playing a role as well * The patient will have a discussion with the family later today (6) Cirrhosis: Code(s): K74.60 - Unspecified cirrhosis of liver Status: Acute Assessment and Plan: * known issues for the laast couple of years * issues with ascites noted more recently * Cirrhosis may be part of the reason he has some trouble with fluid removal * GI recommendations noted (7) Paroxysmal A-fib: Code(s): I48.0 - Paroxysmal atrial fibrillation Status: Acute Assessment and Plan: * rate control strategy - on amiodarone * on warfarin for anticoagulation - follow PT/INR Subjective Date/time seen: 01/01/24 09:50 Interval history: Patient is feeling about the same. Still has some swelling and still short of breath. Exam Narrative: General: elderly male in NAD Heart: normal S1 and S2; no rub Lungs: clear anteriorly, decreased at bases Abdomen: soft, nontender, mild distension, positive bowel sounds Extremities:
--- NOTE | 2024-01-01 09:50 | PM.PNNEP ---
Progress Note: A&P Assessment and Plan (1) Acute kidney injury superimposed on CKD: Code(s): N17.9 - Acute kidney failure, unspecified; N18.9 - Chronic kidney disease, unspecified Status: Acute Assessment and Plan: dialysis dependent at this time baseline CKD likely due to CHF, vascular disease, hypertension, and age-related change outpatient and inpatient labs noted: 1.5 - 1.7mg/dl in 2022 2.1 ? 2.4mg/dl since Oct 2023 on admission to [facility] (12/09), creatinine 2.8mg/dl with a BUN of 108 BUN/Cr worsened to 126/3.64 on 12/15/23 Possibly end-stage renal disease now. With his volume overload, he was scheduled for a dry ultrafiltration today. The patient refused this procedure today. He wishes to talk with his family to discuss aggressiveness of care. (2) Sepsis: Qualifiers: Sepsis type: sepsis due to unspecified organism Sepsis acute organ dysfunction status: without acute organ dysfunction Qualified Code(s): A41.9 - Sepsis, unspecified organism Code(s): A41.9 - Sepsis, unspecified organism Status: Acute Assessment and Plan: based on presentation with hypoxia, increased RR, cough and hypotension BP improved lately. Still a bit soft especially when we try to remove fluid. lactic acid normal at baseline, systolic BP runs in the 100 - 110 systolic range Blood cultures negative on cefepime (3) Pneumonia: Qualifiers: Pneumonia type: due to unspecified organism Laterality: bilateral Lung location: unspecified part of lung Qualified Code(s): J18.9 - Pneumonia, unspecified organism Code(s): J18.9 - Pneumonia, unspecified organism Status: Acute Assessment and Plan: admission CXR suggestive evidence of tachypnea and hypoxia on presentation follow cultures on cefepime and Zithromax oxygen support and bronchodilators He still needs a lot of oxygen follow respiratory status (4) Anemia: Code(s): D64.9 - Anemia, unspecified Status: Acute Assessment and Plan: due to ZELDA/CKD and dialysis Epogen with HD anemia studies with iron deficiency would hold IV iron in the setting of infection Hemoglobin stable in the mid 8 (5) Edema: Code(s): R60.9 - Edema, unspecified Status: Chronic Assessment and Plan: due to renal dysfunction, CHF/cardiorenal syndrome and PVD suspect an element of liver dysfunction playing a role as well The patient will have a discussion with the family later today (6) Cirrhosis: Code(s): K74.60 - Unspecified cirrhosis of liver Status: Acute Assessment and Plan: known issues for the laast couple of years issues with ascites noted more recently Cirrhosis may be part of the reason he has some trouble with fluid removal GI recommendations noted (7) Paroxysmal A-fib: Code(s): I48.0 - Paroxysmal atrial fibrillation Status: Acute Assessment and Plan: rate control strategy - on amiodarone on warfarin for anticoagulation - follow PT/INR Subjective Date/time seen: 01/01/24 09:50 Interval history: Patient is feeling about the same. Still has some swelling and still short of breath. Exam Narrative: General: elderly male in NAD Heart: normal S1 and S2; no rub Lungs: clear anteriorly, decreased at bases Abdomen: soft, nontender, mild distension, positive bowel sounds Extremities: 2+ edema Skin: no rash Objective Data Vital Signs Vital Signs: Vital Signs - 24 hr 12/31/23 10:00 12/31/23 10:00 12/31/23 10:15 Temperature Pulse Rate 81 81 78 Respiratory Rate Blood Pressure 111/54 L 111/53 L Pulse Oximetry Oxygen Delivery Oxygen Flow Rate 12/31/23 10:30 12/31/23 10:45 12/31/23 11:00 Temperature Pulse Rate 77 80 78 Respiratory Rate Blood Pressure 104/51 L 112/50 L 113/49 L Pulse Oximetry Oxygen Delivery Oxygen Flow Rate
[2024-01-01] MEDS: IRON SUCROSE COMPLEX 300 MG in SODIUM CHLORIDE 0.9% IV 250 ML 177 MG IVPB (10:30)
--- NOTE | 2024-01-01 16:16 | PC.NURSE ---
This patient, Haresh Perez, was transferred to [facility] on 01/01/24 at 1533. Personal belongings sent with patient. Report given to Marino GREGG. Appropriate documentation sent with patient.
--- NOTE | 2024-01-01 17:30 | PM.IMPN ---
Progress Note: A&P Assessment and Plan (1) Pneumonia: Qualifiers: Pneumonia type: due to unspecified organism Laterality: bilateral Lung location: unspecified part of lung Qualified Code(s): J18.9 - Pneumonia, unspecified organism Code(s): J18.9 - Pneumonia, unspecified organism Status: Acute Assessment and Plan: 12/27/2023: Patient presented from the rehab facility with shortness of breath and hypoxia, normally on 3 L oxygen which had to be bumped to 5 L with adequate O2 sats. The ER he was saturating much better so a oxygen was dialed down to 3 L nasal cannula. -12/26: chest x-ray admission showed interval development of extensive patchy bilateral airspace disease, compatible with pneumonia, pacemaker leads are stable, and a prosthetic heart valve, status post median sternotomy for CABG, moderate cardiomegaly, central venous catheter tip in SVC -continue bronchodilators -continue with the cefepime (started 12/26) -azithromycin course finished today -Preliminary blood cultures are negative so far -continue supplemental oxygen to maintain O2 sats > 92% (2) Sepsis: Qualifiers: Sepsis type: sepsis due to unspecified organism Sepsis acute organ dysfunction status: without acute organ dysfunction Qualified Code(s): A41.9 - Sepsis, unspecified organism Code(s): A41.9 - Sepsis, unspecified organism Status: Acute Assessment and Plan: Patient presented with hypoxia with O2 sats in the 80s, tachypnea, cough, hypotension -lactic acid is within normal limits -continue antibiotics as above -patient received 500 mL IV fluid bolus in the ER -given patient has a history of end-stage renal disease, will infuse albumin for volume expansion -according the patient, his systolic blood pressures normally run in the 100s -continue midodrine, since patient has cardiorenal syndrome (3) Paroxysmal A-fib: Code(s): I48.0 - Paroxysmal atrial fibrillation Status: Acute Assessment and Plan: History of paroxysmal AFib -continue p.o. amiodarone and Coumadin for anticoagulation -01/01/2024: Coumadin as the INR is 3.7 -resume Coumadin at a lower dose (2.5 mg) once INR falls below 3 -check PT INR daily -currently paced rhythm and stable (4) SSS (sick sinus syndrome): Code(s): I49.5 - Sick sinus syndrome Status: Acute Assessment and Plan: Patient with history of sick sinus syndrome with pacemaker in place (5) Edema: Code(s): R60.9 - Edema, unspecified Status: Chronic Assessment and Plan: Bilateral lower extremity edema, multifactorial -could be related due to cardiomyopathy, renal failure, hepatic dysfunction -elevated bilirubin, right upper quadrant ultrasound showed cirrhosis -abdominal is also distended, will obtain obstructive series -DC albumin -patient is undergoing hemodialysis (6) Renal failure: Code(s): N19 - Unspecified kidney failure Status: Acute Assessment and Plan: Patient with acute on chronic kidney disease on HD (M, W, F) -recently started on dialysis on 12/15/2023 at [facility] where he was diagnosed with cardiorenal syndrome -patient has a tunnel dialysis catheter which was placed on 12/15/2023 -nephrology has been consulted -dialysis per Nephrology -will hold Lasix and metolazone due to hypotension -continue with hemodialysis -Advised patient to continue with his outpatient hemodialysis 3 times a week as recommended by Nephrology -follow-up closely by Nephrology -patient wants something to calm him down before he goes for hemodialysis, to be addressed by Nephrology (7) Debilitated: Code(s): R53.81 - Other malaise Status: Acute Assessment and Plan: -Patient at rehab facility for debilitation, he states he has not been able to get up and walk. -PT/OT evaluation ordered (8) Iron deficiency anemia: Code(s): D50.9 - Iron deficiency anemia, unspecified Statu
[2024-01-01 19:40] LABS: Alveolar/Arterial O2 Gradient 472.3 mmHg; Base Excess ABG -0.2 mEq/l (+/-2.0); Fractional Inspired Oxygen 86 %; HCO3 ABG 23.4 mEq/l (22.0-26.0); Oxygen Content ABG 14.5 %vol (16.0-22.0); Oxygen Saturation ABG 98.1 % (95.0-100.0); Oxyhemoglobin 96.8 % THb (90.0-100.0); PCO2 ABG 34.4 mmHg (35.0-45.0); PO2 ABG 105.3 mmHg (80.0-100.0); PO2 FiO2 Ratio Arterial Blood 1.22 %; Total Hemoglobin 10.5 g/dL (12.0-18.0)
[2024-01-01 19:41] LABS: Device HIGH FLOW THERAPY; Site Drawn LEFT BRACHIAL
[2024-01-01] MEDS: ATORVASTATIN 40 MG TABLET PO (20:02)
[2024-01-01] MEDS: MELATONIN 5 MG TABLET PO (20:02)
[2024-01-01] MEDS: CEFEPIME 1 GM/NS 50 ML 1 GM/50 ML BAG IVPB (20:04)
[2024-01-02] VITALS: PULSE 77; O2SAT 94
--- NOTE | 2024-01-02 01:10 | PC.NURSE ---
This RN responded to patient's bedside due to low oxygen saturation alarm on telemetry. Patient found with airvo canula pulled off face, replaced airvo, but patient was unresponsive with agonal respirations. Code team activated.
--- NOTE | 2024-01-02 02:19 | P.CODEBLUE_ITS ---
Code Blue Note Code Blue Note Time Arrived at Code Blue: 01:12 Initial Rhythm on Arrival: PEA Airway Management: Pt intubated during resuscitation Chest Compressions: In process on arrival to bedside Result of Code Blue: Pt Cardiac Rhythm Post Code: VFib/asystole Code Blue Summary: Code was called when the patient was found with his Airvo off with agonal respirations. CPR was initiated. I arrived shortly after compressions had been initiated. The patient was pulseless. The patient was placed on monitor and given dose of epi. On pulse check initially patient was in asystole. Patient was then given epi and bicarb on repeat pulse check patient's in VFib. The patient was intubated after the 1st defibrillation with 7.5 ET tube measuring 26 at the lip. Patient was shocked and received another dose of epi. Usual ACLS protocol was continued with additional doses of epi bicarb and calcium gluconate. The patient did receive 1 g of magnesium as well. After patient had several rounds of CPR with 3-4 defibrillator shocks on ultrasound there was no myocardial motion. Subsequently the code was called at 01:37. I suspect the patient's primary cause of cardiac arrest was likely hypoxia with patient having removed his Airvo. Please see code sheet for medication doses frequency, timing of defibrillation. A times documented on my note her based off of the clock in the patient's room. According to the hospital still operator batch or continuous the code was actually paged out at 01:20 45 minutes spent in critical care activities.
--- NOTE | 2024-01-02 02:43 | WPDPROCEDUR ---
Procedures Intubation Intubation Date: 01/02/24 Intubation Time: 01:16 Consent: Performed emergently Sedative: none Laryngoscope: fiber optic video scope ET tube size: 7.5 Tube secured depth (cm): 26 Tube secured location: lips Tube placement confirmation: visualized tube passing through cords, equal breath sounds bilaterally, no breath sounds over epigastrium and confirmation by capnometry
[2024-01-02 10:56] LABS: Ceruloplasmin 45 mg/dL (18-36)
--- NOTE | 2024-01-02 13:31 | PC.NURSE ---
MTS released patient to [facility] in [place], security/housekeeping cleaner/and home aware.
[2024-01-04 05:01] LABS: Actin Antibody (IgG) <20 U (<20)
--- NOTE | 2024-01-05 08:48 | PM.DDS ---
Discharge Summary Date and Time Date of : 01/02/24 Time of : 01:37 Provider Pronounced By: Dr. Rodrigues Probable Cause of Probable Cause of : Acute on Chronic Hypoxic Respiratory Failure Fluid Overload ESRD on HD Non-compliant with HD Cardio-Renal syndrome Ascites Hepatic failure ?Sick sinus syndrome s/p Permanent Pacemaker Placement ?Chronic anticoagulation? ?Paroxysmal atrial fibrillation Melanoma? Congestive heart failure? Coronary artery disease ?Hyperlipidemia? Hypertension ?Iron deficiency anemia Chronic anemia ?Peripheral vascular disease Summary Hospital Course: H&P: HPI History of Present Illness Date/Time: 12/27/23? 14:30 Chief Complaint: Low blood pressure and SPO2. Narrative: This is an 83-year-old male with coronary artery disease status post CABG, paroxysmal atrial fibrillation on chronic anticoagulation, anemia, and chronic kidney disease who presented to the emergency department via EMS from [facility] for evaluation of low blood pressure and SpO2. The patient provides the following history. He was admitted to [facility] earlier this month for acute on chronic renal failure and volume overload. He was diagnosed with cardiorenal syndrome and was diuresed but became oligoanuric with worsening azotemia and rising creatinine and he was started on hemodialysis on 12/15/2023. He was discharged to [facility] 2 days ago with last dialysis treatment being yesterday. This morning he was found hypotensive (80/40) and hypoxic (SpO2 was in the 80s on his usual 2 to 3 L). The patient himself did not have have any stated complaints aside from mild shortness of breath. He denies fever, sinus congestion, sore throat, productive cough, chest and pleuritic pain, palpitations, vomiting, and diarrhea. In the ED: He was afebrile on arrival with a blood pressure of 81/45 and an SpO2 of 94% on 4 L. Labs were significant for WBC count of 9.8, hemoglobin 8.7, INR 1.7, sodium 134, BUN 40, creatinine 2.30, total bilirubin 2.4, CRP 7.5, total protein 6.0, albumin 3.1. He was negative for influenza, RSV, and COVID. Chest x-ray showed extensive patchy bilateral airspace disease compatible with pneumonia. He was given a 500 mL normal saline bolus as well as 2 g of cefepime and 1500 mg vancomycin. He is being admitted in this setting for further treatment and evaluation. HOSPITAL COURSE ... 12/27/2023 till 01/01/2024: Assessment and Plan (1) Pneumonia: ?Qualifiers: ?Pneumonia type:?due to unspecified organism??Laterality:?bilateral??Lung location:?unspecified part of lung? Qualified Code(s):?J18.9 - Pneumonia, unspecified organism ?Code(s): J18.9 - Pneumonia, unspecified organism ?Status:?Acute ?Assessment and Plan: 12/27/2023:? Patient presented from the rehab facility with shortness of breath and hypoxia, normally on 3 L oxygen which had to be bumped to 5 L with adequate O2 sats.? The ER he was saturating much better so a oxygen was dialed down to 3 L nasal cannula. -12/26: chest x-ray? admission showed interval development of extensive patchy bilateral airspace disease, compatible with pneumonia, pacemaker leads are stable, and a prosthetic heart valve, status post median sternotomy for CABG, moderate cardiomegaly, central venous catheter tip in SVC -continue bronchodilators -continue with the cefepime (started 12/26) -azithromycin course finished today -Preliminary blood cultures are negative so far -continue supplemental oxygen to maintain O2 sats > 92% (2) Sepsis: ?Qualifiers: ?Sepsis type:?sepsis due to unspecified organism??Sepsis acute organ dysfunction status:?without acute organ dysfunction? Qualified Code(s):?A41.9 - Sepsis, unspecified organism ?Code(s): A41.9 - Sepsis, unspecified organism ?Status:?Acute ?Assessment and Plan: Patient presented with hypoxia with O2 sats in the 80s, tachypnea, cough, hypotension -lactic acid i
[2024-01-05 13:03] LABS: LKM 1 Antibody <=20.0 U (<=20.0)
[2024-01-05 20:52] LABS: Mitochondrial (M2) Ab (IgG) <=20.0 U (<=20.0)
[2024-01-06 16:33] LABS: Alpha Fetoprotein Tumor Marker 2.5 ng/mL (<6.1)
[2024-01-07 16:07] LABS: T3 Free 2.7 pg/mL
--- OUTSIDE RECORDS SUMMARY | 2024-02-10 13:37 | XMS_ITS | Encounter Summary ---
Author Name Unknown Organization [facility] Address [address] [place] [address] Encounter Details Date Type Department Care Team Description ASSESSMENT No Information TREATMENT PLAN No Information
--- OUTSIDE RECORDS SUMMARY | 2024-02-10 13:37 | XMS_ITS | Encounter Summary ---
Author Name Unknown Organization [facility] Address [address] [place] [address] Encounter Details Date Type Department Care Team Description ASSESSMENT No Information TREATMENT PLAN No Information
--- OUTSIDE RECORDS SUMMARY | 2024-02-10 13:37 | XMS_ITS | Encounter Summary ---
Author Name Unknown Organization [facility] Address [address] [place] [address] Encounter Details Date Type Department Care Team Description ASSESSMENT No Information TREATMENT PLAN No Information
--- OUTSIDE RECORDS SUMMARY | 2024-02-10 13:37 | XMS_ITS | Continuity of Care Document ---
Author Name Unknown Organization [facility] Address [address] [place] [id number] Care Team Providers Care Color Grinder Name Role Phone Ramon Everett Primary Care Physician [phone] Jose Pino [facility] Encounter [facility] Financial Number [id number] Date(s): 03/31/22 - 03/31/[address] [id number] Discharge Disposition: Home or Self Care Attending Physician: Jose Pino M.D. Admitting Physician: Jose Pino M.D. Referring Physician: Jose Pino M.D. Allergies, Adverse Reactions, Alerts Substance Reaction Severity Status sulfamethoxazole-trimethoprim Rash Active Assessment and Plan Future Appointments Appointment Date:04/08/2022 10:10:00 AM Scheduled Provider: Location:[facility] Appointment Type:Anti [facility]ag Clinic, Follow-Up Appointment Date:05/09/2022 01:00:00 PM Scheduled Provider:Jose Pino M.D. Location:[facility] Appointment Type:[facility] Pacemaker Check Immunizations Given and Recorded Vaccine Date Status Refusal Reason influenza virus vaccine, live, trivalent 11/05/20 Recorded influenza virus vaccine, inactivated 07/05/14 Pradip rded pneumococcal 23-valent vaccine 08/05/08 Recorded Medications amiodarone 200 mg oral tablet 200 mg, 1 tablet(s), Oral, bid, 60 tablet(s), Tablet(s), 3, 3, Route to Pharmacy Electronically, [facility] #[id number], [id number], 175.26, cm, 01/02/2022 0852, Height,95.3, kg, 01/02/2022 0852, Weight Start Date: 01/02/22 Stop Date: 05/02/22 Status: Ordered atorvastatin 40 mg oral tablet See Instructions, # 90 tablet(s), TAKE 1 TABLET BY MOUTH DAILY, [facility] #[id number] Start Date: 04/23/20 Status: Ordered Bystolic 20 mg oral tablet 1 tablet(s), Oral, daily, 90 tablet(s), 3, 3, Route to Pharmacy Electronically, [facility] #[id number], [id number], 176, cm, 07/04/2021 1021, Height, 96, kg, 07/04/2021 1021, Weight Start Date: 07/23/21 St
--- OUTSIDE RECORDS SUMMARY | 2024-02-10 13:37 | XMS_ITS | Continuity of Care Document ---
Author Name Unknown Organization [facility] Address [address] [place] [id number] Care Team Providers Care Registered Nurse Behavioral Health Name Role Phone Ramon Everett Primary Care Physician Jose iPno Encounter [facility] Financial Number [id number] Date(s): 09/05/22 - 09/05/[address] [id number] Discharge Disposition: Home or Self Care Attending Physician: Jose Pino M.D. Referring Physician: Jose Pino M.D. Allergies, Adverse Reactions, Alerts Substance Reaction Severity Status sulfamethoxazole-trimethoprim Rash Active Assessment and Plan Future Appointments Appointment Date:09/24/2022 10:45:00 AM Scheduled Provider: Location:[facility] Anti Coag [facility] Appointment Type:Anti Coag Clinic, Follow-Up Appointment Date:01/09/2023 02:30:00 PM Scheduled Provider:Jose Pino M.D. Location:[facility] Appointment Type:[facility] Pacemaker Check Immunizations Given and Recorded Vaccine Date Status Refusal Reason influenza virus vaccine, live, trivalent 11/05/20 Recorded influenza virus vaccine, inactivated 07/05/14 Pradip rded pneumococcal 23-valent vaccine 08/05/08 Recorded Medications amiodarone 200 mg oral tablet 200 mg, 1 tablet(s), Oral, daily, 30 tablet(s), Tablet(s), 3, 3, Do Not Route Start Date: 05/09/22 Stop Date: 09/06/22 Status: Ordered atorvastatin 40 mg oral tablet See Instructions, # 90 tablet(s), TAKE 1 TABLET BY MOUTH DAILY, [facility] #[id number] Start Date: 04/23/20 Status: Ordered Bystolic 20 mg oral tablet 1 tablet(s), Oral, daily, 90 tablet(s), 3, 3, Route to Pharmacy Electronically, [facility] #[id number], [id number], 176, cm, 07/04/2021 1021, Height, 96, kg, 07/04/2021 1021, Weight Start Date: 07/23/21 Status: Ordered ezetimibe 10 mg oral tablet See Instructions, 90 tablet(s), 3, 3, TAKE 1 TABLET BY MOUTH DAILY, Route to Pharmacy Electronically, [facility] #[id number], [id number]
--- OUTSIDE RECORDS SUMMARY | 2024-02-10 13:37 | XMS_ITS | Continuity of Care Document ---
Author Name Unknown Organization [facility] Address [address] [place] [id number] Care Team Providers Care Clinical Transplant Coordinator Name Role Phone Ramon Everett Primary Care Physician Encounter [facility] Financial Number [id number] Date(s): 09/13/20 - 01/08/[address] [phone] Encounter Diagnosis Chronic atrial fibrillation, unspecified(Final) - Discharge Disposition: Home or Self Care Attending Physician: Jose Pino M.D. Referring Physician: Jose Pino M.D. Allergies, Adverse Reactions, Alerts Substance Criticality Severity Reaction Reaction Severity Status sulfamethoxazole-trimethoprim Rash Active Adhesive Tape Rash Active Assessment and Plan Future Appointments Appointment Date:02/01/2024 01:30:00 PM Scheduled Provider:Jose Pino M.D. Location:[facility] Appointment Type:[facility] Established Patient Appointment Date:03/22/2024 01:30:00 PM Scheduled Provider:Cindy Womack NP Location:[facility] Appointment Type:[facility] Established Patient Appointment Date:05/24/2024 01:45:00 PM Scheduled Provider:Yovani Whitmore MD Location:[facility] Spec Appointment Type:[facility] Established Patient Immunizations Given and Recorded Vaccine Date Status Refusal Reason influenza virus vaccine, live, trivalent 11/05/20 Recorded influenza virus vaccine, inactivated 07/05/14 Pradip rded pneumococcal 23-valent vaccine 08/05/08 Recorded Medications amiodarone 200 mg oral tablet 200 mg, 1 tablet(s), Oral, daily, Tablet(s), 0 Start Date: 09/22/23 Status: Ordered bumetanide 2 mg oral tablet 2 mg, 1 tablet(s), Oral, daily, 100 tablet(s), Tablet(s), 0 Start Date: 10/22/23 Status: Ordered clobetasol 0.05% topical ointment See Instructions, Ointment, 09/22/23- medication on hold as of 09/22/23 x 14 days then pt will restart for 4 more weeks Start Date: 09/22/23 Status: Ordered Farxiga 10 mg oral tablet 10 mg, 1 tablet(s), Or
--- OUTSIDE RECORDS SUMMARY | 2024-02-10 13:38 | XMS_ITS | Continuity of Care Document ---
Author Name Unknown Organization [facility] Address [address] [id number] Care Team Providers Care [employer] Name Role Phone Ramon Everett Primary Care Physician [phone] Encounter [facility] Financial Number [id number] Date(s): 11/12/23 - 11/12/23 [facility] [address] [phone] Encounter Diagnosis Artificial cardiac pacemaker(Discharge Diagnosis) - 11/12/23 Discharge Disposition: Home or Self Care Attending Physician: Yovani Whitmore MD Referring Physician: Jose Pino M.D. Allergies, Adverse Reactions, Alerts Substance Reaction Severity Status sulfamethoxazole-trimethoprim Rash Active Adhesive Tape Rash Active Assessment and Plan Future Appointments Appointment Date:11/19/2023 11:15:00 AM Scheduled Provider: Location:[facility] Appointment Type:[facility] Clinic, No Appointment Phone C Appointment Date:12/14/2023 12:40:00 PM Scheduled Provider:Lucy Fortune MD Location:[facility] Appointment Type:[facility] Established Patient Extended Appointment Date:02/01/2024 01:30:00 PM Scheduled Provider:Jose Pino M.D. Location:[facility] Appointment Type:[facility] Established Patient Appointment Date:03/22/2024 01:30:00 PM Scheduled Provider:Cindy Womack NP Location:[facility] Appointment Type:[facility] Established Patient Appointment Date:05/24/2024 01:45:00 PM Scheduled Provider:Yovani Whitmore MD Location:[facility] Appointment Type:[facility] Established Patient Immunizations Given and Recorded Vaccine Date Status Refusal Reason influenza virus vaccine, live, trivalent 11/05/20 Recorded influenza virus vaccine, inactivated 07/05/14 Pradip rded pneumococcal 23-valent vaccine 08/05/08 Recorded Medications amiodarone 200 mg oral tablet 200 mg, 1 tablet(s), Oral, daily, Tablet(s), 0 Start Date: 09/22/23 Status: Ordered bu
--- OUTSIDE RECORDS SUMMARY | 2024-02-10 13:38 | XMS_ITS | Continuity of Care Document ---
Author Name Unknown Organization [facility] Address [address] [phone] Care Team Providers Care Hardening Machine Operator Name Role Phone Ramon Everett Primary Care Physician Encounter [facility] Financial Number [id number] Date(s): 10/12/23 - 10/12/23 [facility] [address] [phone] Encounter Diagnosis CKD (chronic kidney disease), stage IV(Discharge Diagnosis) - 10/12/23 Hypokalemia(Discharge Diagnosis) - 10/12/23 Discharge Disposition: Home or Self Care Attending Physician: Lucy Fortune MD Allergies, Adverse Reactions, Alerts Substance Reaction Severity Status sulfamethoxazole-trimethoprim Rash Active Adhesive Tape Rash Active Assessment and Plan Future Appointments Appointment Date:10/15/2023 11:40:00 AM Scheduled Provider: Location:[facility] Appointment Type:Anti Coag Clinic, No Appointment Phone C Appointment Date:10/22/2023 02:30:00 PM Scheduled Provider:Yvoani Whitmore MD Location:[facility] Cardiac Ammonia Refrigeration Technician Appointment Type:Upgrade to BIV PPM Appointment Date:10/22/2023 02:30:00 PM Scheduled Provider: Location:Anesthesia Specials Appointment Type:Surgery Appointment Date:12/14/2023 12:40:00 PM Scheduled Provider:Lucy Fortune MD Location:Web Site Administrator [facility] Appointment Type:MSSL EPE Established Patient Extended Appointment Date:02/01/2024 01:30:00 PM Scheduled Provider:Jose Pino M.D. Location:Card Spec [facility] Appointment Type:CSSL EP Established Patient Appointment Date:03/22/2024 01:30:00 PM Scheduled Provider:Cindy Womack NP Location:[facility] Appointment Type:CSSL EP Established Patient Immunizations Given and Recorded Vaccine Date Status Refusal Reason influenza virus vaccine, live, trivalent 11/05/20 Recorded influenza virus vaccine, inactivated 07/05/14 Pradip rded pneumococcal 23-valent vaccine 08/05/08 Recorded Medications
--- OUTSIDE RECORDS SUMMARY | 2024-02-10 13:38 | XMS_ITS | Continuity of Care Document ---
Author Name Unknown Organization [facility] Address [address] [place] [phone] Care Team Providers Care Pediatric Dental Assistant Name Role Phone Ramon Everett Primary Care Physician Jose Pino [facility] Encounter [facility] Financial Number [id number] Date(s): 02/05/22 - 02/05/[address] [phone] Discharge Disposition: Home or Self Care Attending Physician: Jose Pino M.D. Referring Physician: Jose Pino M.D. Allergies, Adverse Reactions, Alerts Substance Reaction Severity Status sulfamethoxazole-trimethoprim Rash Active Assessment and Plan Future Appointments Appointment Date:02/13/2022 11:20:00 AM Scheduled Provider: Location:[facility] Appointment Type:Anti Coag Clinic, Follow-Up Appointment Date:03/31/2022 11:15:00 AM Scheduled Provider:Jose Pino M.D. Location:[facility] Appointment Type:CSSL EP Established Patient Immunizations Given and Recorded Vaccine Date Status Refusal Reason influenza virus vaccine, live, trivalent 11/05/20 Recorded influenza virus vaccine, inactivated 07/05/14 Pradip rded pneumococcal 23-valent vaccine 08/05/08 Recorded Medications amiodarone 200 mg oral tablet 200 mg, 1 tablet(s), Oral, bid, 60 tablet(s), Tablet(s), 3, 3, [id number], [id number], 175.26, cm, 01/02/2022 0852, Height,95.3, kg, 01/02/2022 0852, Weight Start Date: 01/02/22 Stop Date: 05/02/22 Status: Ordered atorvastatin 40 mg oral tablet See Instructions, # 90 tablet(s), TAKE 1 TABLET BY MOUTH DAILY, [email or web address] #[id number] Start Date: 04/23/20 Status: Ordered Bystolic 20 mg oral tablet 1 tablet(s), Oral, daily, 90 tablet(s), 3, 3, Route to Pharmacy Electronically, [facility] #[id number], [id number], 176, cm, 07/04/2021 1021, Height, 96, kg, 07/04/2021 1021, Weight Start Date: 07/23/21 Status: Ordered ezetimibe 10 mg
--- OUTSIDE RECORDS SUMMARY | 2024-02-10 13:38 | XMS_ITS | Continuity of Care Document ---
Author Name Unknown Organization [facility] Address [address] [place] [phone] Care Team Providers Care Precision Printing Worker Name Role Phone Ramon Everett Primary Care Physician Jose Pino [facility] Encounter [facility] Financial Number [id number] Date(s): 01/02/22 - 01/02/[address] [phone] Discharge Disposition: Home or Self Care Attending Physician: Jose Pino M.D. Referring Physician: Jose Pino M.D. Allergies, Adverse Reactions, Alerts Substance Reaction Severity Status sulfamethoxazole-trimethoprim Rash Active Assessment and Plan Future Appointments Appointment Date:01/09/2022 11:45:00 AM Scheduled Provider: Location:[facility] Anti Coag Clinic Appointment Type:Anti Coag Clinic, Follow-Up Appointment Date:02/05/2022 01:45:00 PM Scheduled Provider:Jose Pino M.D. Location:[facility] Appointment Type:CSSL PC Pacemaker Check Immunizations Given and Recorded Vaccine Date Status Refusal Reason influenza virus vaccine, live, trivalent 11/05/20 Recorded influenza virus vaccine, inactivated 07/05/14 Pradip rded pneumococcal 23-valent vaccine 08/05/08 Recorded Medications amiodarone 200 mg oral tablet 200 mg, 1 tablet(s), Oral, bid, 60 tablet(s), Tablet(s), 3, 3, [id number], [id number], 175.26, cm, 01/02/2022 0852, Height,95.3, kg, 01/02/2022 0852, Weight Start Date: 01/02/22 Stop Date: 05/02/22 Status: Ordered atorvastatin 40 mg oral tablet See Instructions, # 90 tablet(s), TAKE 1 TABLET BY MOUTH DAILY, [facility] #[id number] Start Date: 04/23/20 Status: Ordered Bystolic 20 mg oral tablet 1 tablet(s), Oral, daily, 90 tablet(s), 3, 3, Route to Pharmacy Electronically, [facility] #[id number], [id number], 176, cm, 07/04/2021 1021, Height, 96, kg, 07/04/2021 1021, Weight Start Date: 07/23/21 Status: Ordered ezetimibe 10 mg o
--- OUTSIDE RECORDS SUMMARY | 2024-02-10 13:38 | XMS_ITS | Continuity of Care Document ---
Author Name Unknown Organization [facility] Address [address] [phone] Care Team Providers Care Sign Hanger Supervisor Name Role Phone Ramon Everett Primary Care Physician Encounter [facility] Financial Number [id number] Date(s): 05/25/23 - 05/25/23 [facility] [address] [phone] Encounter Diagnosis CKD (chronic kidney disease)(Discharge Diagnosis) - 05/25/23 Discharge Disposition: Home or Self Care Attending Physician: Toro Perez MD Allergies, Adverse Reactions, Alerts Substance Reaction Severity Status sulfamethoxazole-trimethoprim Rash Active Assessment and Plan Future Appointments Appointment Date:06/05/2023 11:25:00 AM Scheduled Provider: Location:[facility] Anti Coag Clinic Appointment Type:Anti Coag Clinic, Follow-Up Appointment Date:07/27/2023 02:30:00 PM Scheduled Provider:Jose Pino M.D. Location:Card Spec Appointment Type:CSSL PC Pacemaker Check Appointment Date:09/21/2023 01:15:00 PM Scheduled Provider:Toro Perez MD Location:American Indian Studies Professor Appointment Type:[facility] CENTER CUSTOMER SERVICE ASSOCIATE New Patient Immunizations Given and Recorded Vaccine Date Status Refusal Reason influenza virus vaccine, live, trivalent 11/05/20 Recorded influenza virus vaccine, inactivated 07/05/14 Pradip rded pneumococcal 23-valent vaccine 08/05/08 Recorded Medications ezetimibe 10 mg oral tablet See Instructions, 90 tablet(s), 3, 3, TAKE 1 TABLET BY MOUTH DAILY, Route to Pharmacy Electronically, [facility] #[id number], [id number], Instructions Replace Required Details Start Date: 02/18/21 Status: Ordered Lasix 40 mg oral tablet 40 mg, 1 tablet(s), Oral, bid, 180 tablet(s), Tablet(s), 3, 3, Route to Pharmacy Electronically, [facility] #[id number], [id number], 176, cm, 01/12/2023 1404, Height, 93, kg, 01/12/2023 1404, Weight Start Date: 02/19/23 Stop Date: 02/14/24 Status: Ordered metOLazone 5 mg
--- OUTSIDE RECORDS SUMMARY | 2024-02-10 13:38 | XMS_ITS | Continuity of Care Document ---
Author Name Unknown Organization [facility] Address [address] [phone] Care Team Providers Care Mophead Trimmer And Wrapper Name Role Phone Ramon Everett Primary Care Physician Jose Pino [facility] Encounter [facility] Financial Number [id number] Date(s): 01/12/23 - 01/12/23 [facility] [address] [id number] Encounter Diagnosis (HFpEF) heart failure with preserved ejection fraction(Discharge Diagnosis) - 01/11/23 I48.0 Paroxysmal atrial fibrillation(Discharge Diagnosis) - 01/11/23 Anticoagulated on warfarin(Discharge Diagnosis) - 01/11/23 Sick sinus syndrome(Discharge Diagnosis) - 01/11/23 On amiodarone therapy(Discharge Diagnosis) - 01/11/23 Cardiac pacemaker(Discharge Diagnosis) - 01/11/23 E78.2 Mixed hyperlipidemia(Discharge Diagnosis) - 01/11/23 I10 Essential hypertension(Discharge Diagnosis) - 01/11/23 I25.10 CAD (coronary artery disease)(Discharge Diagnosis) - 01/11/23 S/P CABG x 1(Discharge Diagnosis) - 01/11/23 I05.9 Mitral valve disease(Discharge Diagnosis) - 01/11/23 S/P MVR (mitral valve repair)(Discharge Diagnosis) - 01/11/23 Discharge Disposition: Home or Self Care Attending Physician: Cindy Womack NP Allergies, Adverse Reactions, Alerts Substance Reaction Severity Status sulfamethoxazole-trimethoprim Rash Active Assessment and Plan Future Appointments Appointment Date:02/03/2023 10:50:00 AM Scheduled Provider: Location:[facility] Anti Coag Clinic Appointment Type:Anti Coag Clinic, Follow-Up Appointment Date:04/14/2023 10:30:00 AM Scheduled Provider:Jose Pino M.D. Location:Card Spec Appointment Type:Virtual Telephone Visit Appointment Date:07/27/2023 02:30:00 PM Scheduled Provider:Jose Pino M.D. Location:Card Spec Appointment Type:CSSL PC Pacemaker Check Immunizations Given and Recorded Vaccine Date Status Refusal Reason influenza virus vaccine, live, trivalent 11/05/20 Recorded influenza virus vaccine, inactivated 07/05/14 Pradip rded
--- OUTSIDE RECORDS SUMMARY | 2024-02-10 13:38 | XMS_ITS | Continuity of Care Document ---
Author Name Unknown Organization [facility] Address [address] [phone] Care Team Providers Care Tree Worker Name Role Phone Ramon Everett Primary Care Physician [phone] Encounter [facility] Financial Number [id number] Date(s): 09/09/23 - 09/09/23 [facility] [address] [id number] Encounter Diagnosis (HFpEF) heart failure with preserved ejection fraction(Discharge Diagnosis) - 09/09/23 CKD (chronic kidney disease), stage IV(Discharge Diagnosis) - 09/09/23 Anticoagulated on warfarin(Discharge Diagnosis) - 09/09/23 Cardiac pacemaker(Discharge Diagnosis) - 09/09/23 I10 Essential hypertension(Discharge Diagnosis) - 09/09/23 I48.0 Paroxysmal atrial fibrillation(Discharge Diagnosis) - 09/09/23 Discharge Disposition: Home or Self Care Attending Physician: Jose Pino M.D. Allergies, Adverse Reactions, Alerts Substance Reaction Severity Status sulfamethoxazole-trimethoprim Rash Active Assessment and Plan Future Appointments Appointment Date:09/17/2023 11:45:00 AM Scheduled Provider: Location:[facility] Anti Coag Clinic Appointment Type:Anti Coag Clinic, No Appointment Phone C Appointment Date:09/18/2023 01:00:00 PM Scheduled Provider:Cindy Womack NP Location:Card Spec Appointment Type:CSSL EP Established Patient Appointment Date:02/01/2024 01:30:00 PM Scheduled Provider:Jose Pino M.D. Location:Card Spec Appointment Type:[facility] EP Established Patient Immunizations Given and Recorded Vaccine Date Status Refusal Reason influenza virus vaccine, live, trivalent 11/05/20 Recorded influenza virus vaccine, inactivated 07/05/14 Pradip rded pneumococcal 23-valent vaccine 08/05/08 Recorded Medications amiodarone 200 mg oral tablet 200 mg, 1 tablet(s), Oral, qpm, 90 tablet(s), Tablet(s), 3, 3, Do Not Route Start Date: 09/09/23 Stop Date: 09/03/24 Status: Ordered Lasix 40 mg oral tablet 40 mg, 1 tablet(s), Oral, daily, 90 tablet(s), Tablet(s), 3,
--- OUTSIDE RECORDS SUMMARY | 2024-02-10 13:38 | XMS_ITS | Continuity of Care Document ---
Author Name Unknown Organization [facility] Address [address] [place] [phone] Care Team Providers Care Senior Infrastructure Architect Name Role Phone Ramon Everett Primary Care Physician Encounter [facility] Financial Number [id number] Date(s): 09/17/23 - 09/17/[address] [phone] Discharge Disposition: Home or Self Care Attending Physician: Jose Pino M.D. Admitting Physician: Jose Pino M.D. Referring Physician: oJse Pino M.D. Allergies, Adverse Reactions, Alerts Substance Reaction Severity Status sulfamethoxazole-trimethoprim Rash Active Assessment and Plan Future Appointments Appointment Date:09/18/2023 01:00:00 PM Scheduled Provider:Cindy Womack MANAGER PACU Location:Card Spec Appointment Type:[facility] EP Established Patient Appointment Date:09/29/2023 11:05:00 AM Scheduled Provider: Location:[facility] Anti Coag Clinic Appointment Type:Anti Coag Clinic, No Appointment Phone C Appointment Date:02/01/2024 01:30:00 PM Scheduled Provider:Jose Pino M.D. Location:Card Spec Appointment Type:[facility] EP Established Patient Immunizations Given and Recorded [...] tablet(s), Oral, daily, 90 tablet(s), Tablet(s), 3, 3, Do Not Route Start Date: 08/12/23 Stop Date: 08/06/24 Status: Ordered metOLazone 5 mg oral tablet 5 mg, 1 tablet(s), Oral, as needed, PRN, 30 tablet(s), Tablet(s), 0, 0, swelling, Route to PharmacyElectronically, [facility] #[id number], [id number], 174, cm, 09/09/23 15:00:00 CASHIER ASSISTANT, Height, 95.6, kg, 09/09/23 15:00:00 CASHIER ASSISTANT, Weight Start Date: 09/09/23 Sto
--- OUTSIDE RECORDS SUMMARY | 2024-02-10 13:38 | XMS_ITS | Continuity of Care Document ---
Author Name Unknown Organization [facility] Address [address] [phone] Care Team Providers Care Painter Spring Name Role Phone Ramon Everett Primary Care Physician Encounter [facility] Financial Number [id number] Date(s): 08/12/23 - 08/12/23 [facility] [address] [phone] Encounter Diagnosis (HFpEF) heart failure with preserved ejection fraction(Discharge Diagnosis) - 08/12/23 E78.2 Mixed hyperlipidemia(Discharge Diagnosis) - 08/12/23 S/P MVR (mitral valve repair)(Discharge Diagnosis) - 08/12/23 I48.0 Paroxysmal atrial fibrillation(Discharge Diagnosis) - 08/12/23 On amiodarone therapy(Discharge Diagnosis) - 08/12/23 Vitamin D insufficiency(Discharge Diagnosis) - 08/12/23 Discharge Disposition: Home or Self Care Attending Physician: Jose Pino M.D. Allergies, Adverse Reactions, Alerts Substance Reaction Severity Status sulfamethoxazole-trimethoprim Rash Active Assessment and Plan Future Appointments Appointment Date:08/18/2023 10:40:00 AM Scheduled Provider: Location:[facility] Appointment Type:Anti Coag Clinic, Follow-Up Appointment Date:09/09/2023 02:45:00 PM Scheduled Provider:Jose Pino M.D. Location:Card Spec Appointment Type:CSSL EP Established Patient Appointment Date:09/21/2023 01:15:00 PM Scheduled Provider:Toro Perez MD Location:Water Systems Engineer Appointment Type:MSSL FASHION MARKETER New Patient Appointment Date:02/01/2024 01:30:00 PM Scheduled Provider:Jose Pino M.D. Location:[facility] Spec Appointment Type:CSSL EP Established Patient Immunizations Given and Recorded Vaccine Date Status Refusal Reason influenza virus vaccine, live, trivalent 11/05/20 Recorded influenza virus vaccine, inactivated 07/05/14 Pradip rded pneumococcal 23-valent vaccine 08/05/08 Recorded Medications amiodarone 200 mg oral tablet 200 mg, 1 tablet(s), Oral, bid, 180 tablet(s), Tablet(s), 3, 3, Route to Pharmacy Electronically,
--- OUTSIDE RECORDS SUMMARY | 2024-02-10 13:38 | XMS_ITS | Continuity of Care Document ---
Author Name Unknown Organization [facility] Address [address] [place] [phone] Care Team Providers Care U.[place]. Senator Name Role Phone Ramon Everett Primary Care Physician Jose Pino [facility] Encounter [facility] Financial Number [id number] Date(s): 09/05/22 - 09/05/[address] [phone] Discharge Disposition: Home or Self Care Attending Physician: Jose Pino M.D. Admitting Physician: Jose Pino M.D. Referring Physician: Jose Pino M.D. Allergies, Adverse Reactions, Alerts Substance Reaction Severity Status sulfamethoxazole-trimethoprim Rash Active Assessment and Plan Future Appointments Appointment Date:09/24/2022 10:45:00 AM Scheduled Provider: Location:[facility] Anti Coag Clinic Appointment Type:Anti Coag Clinic, Follow-Up Appointment Date:01/09/2023 02:30:00 PM Scheduled Provider:Jose Pino M.D. Location:[facility] Appointment Type:CSSL PC Pacemaker Check Immunizations [...] tablet(s), TAKE 1 TABLET BY MOUTH DAILY, [facility] #[id number] Start Date: 04/23/20 Status: Ordered Bystolic 20 mg oral tablet 1 tablet(s), Oral, daily, 90 tablet(s), 3, 3, Route to Pharmacy Electronically, [facility] #[id number], [id number], 176, cm, 07/04/2021 1021, Height, 96, kg, 07/04/2021 1021, Weight Start Date: 07/23/21 Status: Ordered ezetimibe 10 mg oral tablet See Instructions, 90 tablet(s), 3, 3, TAKE 1 TABLET BY MOUTH DAILY, Route to Pharmacy [facility]
--- OUTSIDE RECORDS SUMMARY | 2024-02-10 13:38 | XMS_ITS | Continuity of Care Document ---
Author Name Unknown Organization [facility] Address [address] [phone] Care Team Providers Care Community Development Director Name Role Phone Ramon Everett Primary Care Physician [phone] Encounter [facility] Financial Number [id number] Date(s): 12/14/23 - 12/14/23 [facility] [address] [phone] Discharge Disposition: Home or Self Care Attending Physician: Lucy Fortune MD Allergies, Adverse Reactions, Alerts Substance Reaction Severity Status sulfamethoxazole-trimethoprim Rash Active Adhesive Tape Rash Active Assessment and Plan Future Appointments Appointment Date:12/17/2023 04:05:00 PM Scheduled Provider: Location:[facility] Anti Coag Clinic Appointment Type:Anti Coag Clinic, No Appointment Phone C Appointment Date:02/01/2024 01:30:00 PM Scheduled Provider:Jose Pino M.D. Location:Card Spec [facility] Appointment Type:CSSL EP Established Patient Appointment Date:03/22/2024 01:30:00 PM Scheduled Provider:Cindy Womack NP Location:Card Spec [facility] Appointment Type:CSSL EP Established Patient Appointment Date:05/24/2024 01:45:00 PM Scheduled Provider:Yovani Whitmore MD Location:[facility] David Spec Appointment Type:[facility] EP Established Patient Immunizations Given and Recorded [...] pt will restart for [address]
--- OUTSIDE RECORDS SUMMARY | 2024-02-10 13:38 | XMS_ITS | Continuity of Care Document ---
Author Name Unknown Organization [facility] Address [address] [phone] Care Team Providers Care Community Pharmacist Name Role Phone Ramon Everett Primary Care Physician Encounter [facility] Financial Number [id number] Date(s): 09/18/23 - 09/18/23 [facility] [address] [id number] Encounter Diagnosis (HFpEF) heart failure with preserved ejection fraction(Discharge Diagnosis) - 09/16/23 I48.0 Paroxysmal atrial fibrillation(Discharge Diagnosis) - 09/16/23 I48.92 Atrial flutter, paroxysmal(Discharge Diagnosis) - 09/16/23 Cardiac pacemaker(Discharge Diagnosis) - 09/16/23 Anticoagulated on warfarin(Discharge Diagnosis) - 09/16/23 I10 Essential hypertension(Discharge Diagnosis) - 09/16/23 CKD (chronic kidney disease), stage IV(Discharge Diagnosis) - 09/16/23 E78.2 Mixed hyperlipidemia(Discharge Diagnosis) - 09/16/23 I25.10 CAD (coronary artery disease)(Discharge Diagnosis) - 09/16/23 I71.2 Thoracic aneurysm without mention of rupture(Discharge Diagnosis) - 09/16/23 On amiodarone therapy(Discharge Diagnosis) - 09/16/23 S/P CABG x 1(Discharge Diagnosis) - 09/16/23 Discharge Disposition: Home or Self Care Attending Physician: Cindy Womack NP Allergies, Adverse Reactions, Alerts Substance Reaction Severity Status sulfamethoxazole-trimethoprim Rash Active Assessment and Plan Future Appointments Appointment Date:09/29/2023 11:05:00 AM Scheduled Provider: Location:[facility] Anti Coag Clinic Appointment Type:Anti Coag Clinic, No Appointment Phone C Appointment Date:10/08/2023 02:30:00 PM Scheduled Provider:John Mata MD Location:[facility] Cardiac Forest Fire Prevention Specialist Appointment Type:[facility] - Right heart cath Appointment Date:02/01/2024 01:30:00 PM Scheduled Provider:Jose Pino M.D. Location:Card Spec Appointment Type:CSSL EP Established Patient Appointment Date:03/22/2024 01:30:00 PM Scheduled Provider:Cindy Womack NP Location:Card Spec Appointment Type:CSSL EP Established Patient Immunizations Given and Recorded Vaccine Date Status Refusal Reason inf
--- OUTSIDE RECORDS SUMMARY | 2024-02-10 13:38 | XMS_ITS | Continuity of Care Document ---
Author Name Unknown Organization [facility] Address [address] [phone] Care Team Providers Care Head Waiter/Waitress Name Role Phone Ramon Everett Primary Care Physician [phone] Encounter [facility] Financial Number [id number] Date(s): 04/02/23 - 04/02/23 [facility] [address] [id number] Encounter Diagnosis I10 Essential hypertension(Discharge Diagnosis) - 04/02/23 Discharge Disposition: Home or Self Care Attending Physician: Toro Perez MD Allergies, Adverse Reactions, Alerts Substance Reaction Severity Status sulfamethoxazole-trimethoprim Rash Active Assessment and Plan Future Appointments Appointment Date:04/08/2023 11:45:00 AM Scheduled Provider: Location:[facility] Anti Coag Clinic Appointment Type:Anti Coag Clinic, Follow-Up Appointment Date:04/14/2023 10:30:00 AM Scheduled Provider:Jose Pino M.D. Location:[email or web address] Appointment Type:Virtual Telephone Visit Appointment Date:05/21/2023 01:45:00 PM Scheduled Provider:Toro Perez MD Location:Oil Inspector Appointment Type:MSS EPE Established Patient Extended Appointment Date:07/27/2023 02:30:00 PM Scheduled Provider:Jose Pino M.D. Location:[email or web address] Appointment Type:CSSL PC Pacemaker Check Immunizations Given and Recorded Vaccine Date Status Refusal Reason influenza virus vaccine, live, trivalent 11/05/20 Recorded influenza virus vaccine, inactivated 07/05/14 Pradip rded pneumococcal 23-valent vaccine 08/05/08 Recorded Medications ezetimibe 10 mg oral tablet See Instructions, 90 tablet(s), 3, 3, TAKE 1 TABLET BY MOUTH DAILY, Route to Pharmacy Electronically, [facility] #[id number], [id number], Instructions Replace Required Details Start Date: 02/18/21 Status: Ordered Lasix 40 mg oral tablet 40 mg, 1 tablet(s), Oral, bid, 180 tablet(s), Tablet(s), 3, 3, Route to Pharmacy Electronically, [facility] #[id number], [id number]
--- OUTSIDE RECORDS SUMMARY | 2024-02-10 13:38 | XMS_ITS | Continuity of Care Document ---
Author Name Unknown Organization [facility] Address [address] [phone] Care Team Providers Care Electrical Prospecting Engineer Name Role Phone Ramon Everett Primary Care Physician Encounter [facility] Financial Number [id number] Date(s): 07/27/23 - 07/27/23 [facility] [address] [phone] Encounter Diagnosis Cardiac pacemaker(Discharge Diagnosis) - 07/27/23 E78.2 Mixed hyperlipidemia(Discharge Diagnosis) - 07/27/23 I10 Essential hypertension(Discharge Diagnosis) - 07/27/23 I25.10 CAD (coronary artery disease)(Discharge Diagnosis) - 07/27/23 I71.2 Thoracic aneurysm without mention of rupture(Discharge Diagnosis) - 07/27/23 Anticoagulated on warfarin(Discharge Diagnosis) - 07/27/23 (HFpEF) heart failure with preserved ejection fraction(Discharge Diagnosis) - 07/27/23 S/P CABG x 1(Discharge Diagnosis) - 07/27/23 S/P MVR (mitral valve repair)(Discharge Diagnosis) - 07/27/23 On amiodarone therapy(Discharge Diagnosis) - 07/27/23 Permanent atrial fibrillation(Discharge Diagnosis) - 07/27/23 Discharge Disposition: Home or Self Care Attending Physician: Jose Pino M.D. Allergies, Adverse Reactions, Alerts Substance Reaction Severity Status sulfamethoxazole-trimethoprim Rash Active Assessment and Plan Future Appointments Appointment Date:2023 10:55:00 AM Scheduled Provider: Location:[facility] Appointment Type:Anti Coag Clinic, Follow-Up Appointment Date:08/12/2023 09:15:00 AM Scheduled Provider:Jose Pino M.D. Location:[facility] Spec Appointment Type:CSSShakila EP Established Patient Appointment Date:09/21/2023 01:15:00 PM Scheduled Provider:Toro Perez MD Location:[facility] Appointment Type:MUSCOGE[facility]akila EPIC CUPID ANALYST New Patient Appointment Date:02/01/2024 01:30:00 PM Scheduled Provider:Jose Pino M.D. [facility] Patient Immunizations Given and Recorded Vaccine Date Status Refusal Reason influenza virus vaccine, live, trivalent 11/05/20 Recorded influen
--- OUTSIDE RECORDS SUMMARY | 2024-02-10 13:38 | XMS_ITS | Continuity of Care Document ---
Author Name Unknown Organization [facility] Address [address] [place] [phone] Care Team Providers Care Ruffling Machine Operator Name Role Phone Ramon Everett Primary Care Physician Encounter [facility] Financial Number [id number] Date(s): 09/22/23 - 10/01/[address] [phone] Encounter Diagnosis CHF exacerbation(Discharge Diagnosis) - 09/22/23 Leg swelling(Discharge Diagnosis) - 09/22/23 I48.0 Paroxysmal atrial fibrillation(Discharge Diagnosis) - 09/29/23 Hyperuricemia(Discharge Diagnosis) - 09/29/23 Discharge Disposition: Home with Physician Follow-up Attending Physician: Macrina Bundy M.D. Admitting Physician: Lencho Proctor MD Referring Physician: Self, Referred Allergies, Adverse Reactions, Alerts Substance Reaction Severity Status sulfamethoxazole-trimethoprim Rash Active Adhesive Tape Rash Active Assessment and Plan Future Appointments Appointment Date:10/06/2023 07:45:00 AM Scheduled Provider: Location:[facility] Appointment Type:Anti Coag Clinic, No Appointment Phone C Appointment Date:10/08/2023 02:30:00 PM Scheduled Provider:John Mata MD Location:[facility] Appointment Type:RHC - Right heart cath Appointment Date:02/01/2024 01:30:00 PM Scheduled Provider:Jose Pino M.D. Location:[facility] Spec [facility] Appointment Type:CSSL EP Established Patient Appointment Date:03/22/2024 01:30:00 PM Scheduled Provider:Cindy Womack NP Location:Card Spec Appointment Type:CSSL EP Established Patient Functional Status 10/01/23 Ambulation Level Minimal assistance Ambulation Device Utilized Wheeled walke r Weightbearing Maintained Yes Weight bearing status Full weight bearin g Number of Stairs 1 1 Stairs Device Wheeled walker 10/01/23 Activity Assistance Two person assist
--- OUTSIDE RECORDS SUMMARY | 2024-02-10 13:38 | XMS_ITS | Continuity of Care Document ---
Author Name Unknown Organization [facility] Address [address] [place] [phone] Care Team Providers Care Raw Juice Weigher Name Role Phone Ramon Everett Primary Care Physician Jose Pino [facility] Encounter [facility] Financial Number [id number] Date(s): 05/09/22 - 05/09/[address] [phone] Discharge Disposition: Home or Self Care Attending Physician: Jose Pino M.D. Referring Physician: Jose Pino M.D. Allergies, Adverse Reactions, Alerts Substance Reaction Severity Status sulfamethoxazole-trimethoprim Rash Active Assessment and Plan Future Appointments Appointment Date:05/19/2022 10:35:00 AM Scheduled Provider: Location:[facility] Anti Coag Clinic Appointment Type:Anti Coag Clinic, Follow-Up Appointment Date:09/05/2022 11:30:00 AM Scheduled Provider: Location:[facility] Cardiology Appointment Type:Echocardiogram Complete Study Appointment Date:09/05/2022 02:30:00 PM Scheduled Provider:Jose Pino M.D. Location:[facility] Appointment Type:[facility] EP Established Patient Immunizations Given and Recorded [...] tablet(s), TAKE 1 TABLET BY MOUTH DAILY, [facility] #[id number] Start Date: 04/23/20 Status: Ordered Bystolic 20 mg oral tablet 1 tablet(s), Oral, daily, 90 tablet(s), 3, 3, [id number] [id number], 176, cm, 07/04/2021 1021, Height, 96, kg, 07/04/2021 1021, Weight Start Date: 07/23/21 Status: Ordered ezetimibe 1
--- OUTSIDE RECORDS SUMMARY | 2024-02-10 13:38 | XMS_ITS | Continuity of Care Document ---
Author Name Unknown Organization [facility] Address [address] [place] [phone] Care Team Providers Care Sagger Filler Name Role Phone Ramon Everett Primary Care Physician Jose Pino [facility] Encounter [facility] Financial Number [id number] Date(s): 06/03/21 - 06/03/[address] [phone] Discharge Disposition: Home or Self Care Attending Physician: Jose Pino M.D. Admitting Physician: Jose Pino M.D. Referring Physician: Jose Pino M.D. Allergies, Adverse Reactions, Alerts Substance Reaction Severity Status sulfamethoxazole-trimethoprim Rash Active Assessment and Plan Future Appointments Appointment Date:06/04/2021 10:40:00 AM Scheduled Provider: Location:[facility] Anti Coag Clinic Appointment Type:Anti Coag Clinic, Follow-Up Appointment Date:07/04/2021 10:30:00 AM Scheduled Provider:Jose Pino M.D. Location:[facility] Appointment Type:CSSL PC Pacemaker Check Immunizations Given and Recorded Vaccine Date Status Refusal Reason influenza virus vaccine, live, trivalent 11/05/20 Recorded influenza virus vaccine, inactivated 07/05/14 Pradip rded pneumococcal 23-valent vaccine 08/05/08 Recorded Medications atorvastatin 40 mg oral tablet See Instructions, # 90 tablet(s), TAKE 1 TABLET BY MOUTH DAILY, [facility] #[id number] Start Date: 04/23/20 Status: Ordered Bystolic 20 mg oral tablet 1 tablet(s), Oral, daily, 90 tablet(s), 0, 0, Route to Pharmacy Electronically, [facility] #[id number], [id number], 175.26, cm, 02/15/2021 08, Height, 95, kg, 02/15/2021 0803, Weight Start Date: 05/15/21 Status: Ordered ezetimibe 10 mg oral tablet See Instructions, # 90 tablet(s), TAKE 1 TABLET BY MOUTH DAILY, [id number] Start Date: 11/26/20 Status: Ordered ezetimibe 10 mg oral tablet See Instructions, 90 tablet(s), 3, 3, TAKE 1 TABLET BY MOUTH DAILY, Route to Pharmacy Electronically,
--- OUTSIDE RECORDS SUMMARY | 2024-02-10 13:38 | XMS_ITS | Continuity of Care Document ---
Author Name Unknown Organization [facility] Address [address] [place] [phone] Care Team Providers Care Graphite Grinder Name Role Phone Ramon Everett Primary Care Physician [phone] Encounter [facility] Financial Number [id number] Date(s): 10/22/23 - 10/23/[address] [phone] Discharge Disposition: Home with Physician Follow-up Attending Physician: Yovani Whitmore MD Admitting Physician: Yovani Whitmore MD Referring Physician: Jose Pino M.D. Allergies, Adverse Reactions, Alerts Substance Reaction Severity Status sulfamethoxazole-trimethoprim Rash Active Adhesive Tape Rash Active Assessment and Plan Future Appointments Appointment Date:10/29/2023 11:25:00 AM Scheduled Provider: Location:[facility] Anti Coag Clinic Appointment Type:Anti Coag Clinic, No Appointment Phone C Appointment Date:12/14/2023 12:40:00 PM Scheduled Provider:Lucy Fortune MD Location:[facility] Appointment Type:[facility] EPE Established Patient Extended Appointment Date:02/01/2024 01:30:00 PM Scheduled Provider:Jose Pino M.D. Location:Card Spec Appointment Type:[facility]SSL EP Established Patient Appointment Date:03/22/2024 01:30:00 PM Scheduled Provider:Cindy Womack NP Location:Card Spec Appointment Type:[facility]SSL EP Established Patient Functional Status 10/22/23 Activity Assistance Standby assistance Ambulation Distance 6 10/22/23 Living Situation Home independently Immunizations Given and Recorded Vaccine Date Status Refusal Reason influenza virus vaccine, live, trivalent 11/05/20 Recorded influenza virus vaccine, inactivated 07/05/14 Pradip rded pneumococcal 23-valent vaccine 08/05/08 Recorded Medications amiodarone 200 mg oral tablet 200 mg, 1 tablet(s), Oral, daily, Tablet(s), 0 Start Date
== END 2024-01-02 01:37 | disposition expired | DRG 871 ==
LOC: ANHED 10:36 → ANHICU 13:08 → ANHIMU 01-01 15:45
PROVIDERS: Family Medicine; Internal Medicine; Internal Medicine Nephrology; Nurse Practitioner Family; Physician Assistant; Admitting Provider Internal Medicine; Emergency Provider Emergency Medicine; Visit Provider Internal Medicine
DX: A41.9 Sepsis, unspecified organism (principal); J18.9 Pneumonia, unspecified organism; N18.6 End stage renal disease; J96.21 Acute and chronic respiratory failure with hypoxia; I13.2 Hypertensive heart and chronic kidney disease with heart failure and with stage 5 chronic kidney disease, or end stage renal disease; N17.9 Acute kidney failure, unspecified; I42.9 Cardiomyopathy, unspecified; R18.8 Other ascites; I48.0 Paroxysmal atrial fibrillation; I50.9 Heart failure, unspecified; I49.01 Ventricular fibrillation; I46.9 Cardiac arrest, cause unspecified; I49.5 Sick sinus syndrome; D50.9 Iron deficiency anemia, unspecified; R16.0 Hepatomegaly, not elsewhere classified; Z20.822 Contact with and (suspected) exposure to COVID-19; D63.1 Anemia in chronic kidney disease; I25.10 Atherosclerotic heart disease of native coronary artery without angina pectoris; L98.499 Non-pressure chronic ulcer of skin of other sites with unspecified severity; I73.9 Peripheral vascular disease, unspecified; K74.60 Unspecified cirrhosis of liver; I95.9 Hypotension, unspecified; E78.5 Hyperlipidemia, unspecified; Z87.891 Personal history of nicotine dependence; Z79.01 Long term (current) use of anticoagulants; Z85.820 Personal history of malignant melanoma of skin; Z95.0 Presence of cardiac pacemaker; Z99.2 Dependence on renal dialysis; Z95.1 Presence of aortocoronary bypass graft; Z95.2 Presence of prosthetic heart valve; Z99.81 Dependence on supplemental oxygen; Z91.158 Patient's noncompliance with renal dialysis for other reason
CPT/HCPCS: 31500; 36415; 36600; 71045; 71046; 74019; 74176; 76705; 80048; 80053; 80074; 80202; 82105; 82390; 82565; 82607; 82728; 82746; 82805; 83520; 83540; 83550; 83605; 83690; 83735; 83880; 84100; 84145; 84436; 84439; 84443; 84480; 85025; 85610; 85730; 86038; 86140; 86364; 86376; 86706; 86738; 87040; 87340; 87449; 87637; 87641; 87899; 92950; 93005; 93970; 94640; 96361; 96365; 99285; A9270; C8929; G0257; J0171; J0692; J1644; J1756; J1940; J3370; J3475; J7030; J7040; J7050; P9047; Q5105; Q9957